=== PATIENT | male | born 1935 | race Caucasian/White ===

== ENCOUNTER 2017-03-30 20:05 | Emergency (ER) | payer MEDICARE ==
[~2017-03-30 20:05] MED LIST: ISOVUE-370 76%-LOCM 1 ML ONE
[2017-03-30 20:59] LABS: #Eosinphils 0.2 thou/uL (0.0-0.7); #Lymphocytes 1.1 thou/uL (1.20-3.40); #Monocytes 0.4 thou/uL (0.11-0.59); #Neutrophils 15.8 thou/uL (1.40-6.50); %Basophils 0.1 % (0.0-1.0); %Eosinophils 1.3 % (0.0-10.0); %Lymphocytes 6.3 % (21.0-51.0); %Monocytes 2.5 % (0.0-10.0); Hematocrit 58.6 % (42.0-52.0); Mean Platelet Volume 8.1 fL (7.4-10.4); Red Blood Cell (RBC) Count 6.12 mill/uL (4.70-6.10); White Blood Cell (WBC) Count 17.6 thou/uL (4.8-10.8)
[2017-03-30 21:08] LABS: ALT (SGPT) 26 U/L (8-55); AST (SGOT) 22 U/L (5-34); Alkaline Phosphatase 73 U/L (40-150); Anion Gap 14 mmol/L (10-20); BUN (Urea Nitrogen) 15 mg/dL (8.4-25.7); Calc. Creatinine Clearance 0 mL/min (70-130); Calcium 9.4 mg/dL (7.8-10.44); Carbon Dioxide 28 mmol/L (23-31); Chloride 98 mmol/L (98-107); Estimated GFR-MDRD 85; Globulin 3.2 g/dL (2.4-3.5); Lipase 55 U/L (8-78); Protein, Total 7.4 g/dL (5.8-8.1)
[2017-03-30] MEDS ORDERED: Ondansetron HCl/PF 4 MG/2 ML Vial ONE (21:11)
[2017-03-30] MEDS ORDERED: Acetaminophen 500 MG TAB ONE (21:11)
[2017-03-30 21:12] LABS: Troponin I Less than 0.010 ng/mL (< 0.028)
[2017-03-30] MEDS ORDERED: Dicyclomine HCl 20 mg/2 ml Ampule ONE (21:12)
--- NOTE | 2017-03-30 22:03 | CT ---
CT ABDOMEN AND PELVIS WITH IV CONTRAST 03/30/17 HISTORY: Abdominal pain. FINDINGS: Comparison is made with exam of 11/27/15. There are emphysematous changes at the lung bases. A few tiny low density lesions in the liver are a gain seen. The spleen, pancreas, adrenal glands, and kidneys are normal. No calcified gallstones are seen. A small hiatal hernia is present. No free air, free fluid or lymphadenopathy is noted in the abdomen or pelvis. There is colonic diverticulosis without evidence of diverticulitis. There are va scular calcifications without evidence of aneurysmal dilatation of the abdominal aorta. There is a f at containing left inguinal hernia. There is a small bowel loop containing right inguinal hernia. A small amount of air is seen in the lateral aspect of the right gluteal muscle. Clinical correlation is recommended. The prostate is enlarged. There are vascular calcifications without evidence of aneu rysmal dilatation of the abdominal aorta. There are degenerative changes in the spine. IMPRESSION: 1. Small hiatal hernia. 2. Colonic diverticulosis. 3. Tiny liver cysts. 4. Prostatic enlargement. POS: [facility]
== END 2017-03-30 23:54 | disposition home or self-care (01) ==
LOC: ERS 20:05
DX: R11.2 Nausea with vomiting, unspecified (principal); I25.2 Old myocardial infarction; F17.210 Nicotine dependence, cigarettes, uncomplicated; Z79.82 Long term (current) use of aspirin; Z79.899 Other long term (current) drug therapy
CPT/HCPCS: 74177; 80053; 82553; 83690; 84484; 85025; 93005; 96361; 96372; 96374; J2405

== ENCOUNTER 2017-10-26 18:13 | Emergency (ER) | payer MEDICARE ==
--- NOTE | 2017-10-26 19:56 | RAD ---
CHEST ONE VIEW: 10/26/17 HISTORY: 82-year-old male with history of upper abdominal pain and neck pain, trauma. There is rotation to the left. Left transvenous pacemaker. No confluent pneumonia, overt edema or ple ural effusion. No pneumothorax. IMPRESSION: No significant acute intrathoracic disease. Atherosclerosis of the aorta with ectasia. Stable from pr ior study. POS: [facility]
[2017-10-26 20:16] LABS: ALT (SGPT) 22 U/L (8-55); AST (SGOT) 20 U/L (5-34); Albumin 4.3 g/dL (3.4-4.8); Alkaline Phosphatase 64 U/L (40-150); Anion Gap 13 mmol/L (10-20); BUN (Urea Nitrogen) 14 mg/dL (8.4-25.7); Bilirubin, Total 0.4 mg/dL (0.2-1.2); Calc. Creatinine Clearance 0 mL/min (70-130); Calcium 9.5 mg/dL (7.8-10.44); Carbon Dioxide 28 mmol/L (23-31); Chloride 101 mmol/L (98-107); Estimated GFR-MDRD Greater than 90; Globulin 2.6 g/dL (2.4-3.5); Glucose 96 mg/dL (83-110); Potassium 4.5 mmol/L (3.5-5.1); Protein, Total 6.9 g/dL (5.8-8.1); Sodium 137 mmol/L (136-145)
[2017-10-26 20:21] LABS: CKMB 1.9 ng/mL (0-6.6); Troponin I Less than 0.010 ng/mL (< 0.028)
[2017-10-26 20:43] LABS: Bilirubin Negative (Negative); Blood, Urine Negative (Negative); Clarity CLEAR (Clear); Glucose, Urine (Dipstick) Negative (Negative); Leukocyte Negative (Negative); Nitrite Negative (Negative); Protein, Urine (Dipstick) Negative (Neg-Trace); Specific Gravity, Urine 1.014 (1.002-1.036); Urobilinogen 0.2 mg/dL (0.2-1.0)
--- NOTE | 2017-10-26 20:48 | CT ---
BRAIN CT WITHOUT IV CONTRAST: 10/26/17 HISTORY: 82-year-old male with history of upper abdominal and neck pain after falling from a ladder, injury an d trauma. There is some mild atrophy and chronic white matter ischemic change. No mass, bleed or other acute pr ocess. Sinuses and mastoids are clear. IMPRESSION: No acute intracranial process. No mass or bleed. POS: [facility]
--- NOTE | 2017-10-26 20:49 | CT ---
CERVICAL SPINE CT SCAN WITHOUT IV CONTRAST: 10/26/17 HISTORY: 82-year-old male with history of neck pain following fall from a ladder, injury and trauma. No evidence for acute fracture or facet dislocation. Spondylosis particularly at C5-C6 and C6-C7 with some mild to moderate canal and lateral recess and foraminal stenosis, particularly at C6-C7. IMPRESSION: No acute fracture or facet dislocation. Spondylosis most marked at C6-C7. POS: [facility]
--- NOTE | 2017-10-26 21:24 | CT ---
ABDOMEN AND PELVIC CT SCAN WITH IV CONTRAST LUMBAR SPINE CT SCAN WITH IV CONTRAST LIMITED: 10/26/17 HISTORY: 82-year-old male with history of trauma, upper abdomen and neck pain, fall off ladder. ABDOMEN AND PELVIC CT SCAN WITH IV CONTRAST: The lung bases show some mild linear chronic changes in the left base. Small hiatal hernia. The liver , gallbladder, pancreas, spleen, and adrenal glands are unremarkable. No renal calculus or acute o bstruction. No evidence for free intraperitoneal fluid or evidence for retroperitoneal hematoma. There is a loop of small bowel in the upper right inguinal canal consistent with an inguinal herniati on but no evidence of proximal obstruction or incarceration. There is a fat containing left inguinal hernia. There is evidence for sigmoid colon diverticulosis without acute diverticulitis. The bladder is nearly empty. IMPRESSION: No significant acute posttraumatic process in the abdomen and pelvis. Right inguinal hernia containin g a loop of small bowel without evidence for proximal obstruction or incarceration. Small hiatal candy ia. Left inguinal fat containing hernia. LUMBAR SPINE CT SCAN WITH IV CONTRAST LIMITED: No fracture or dislocation. There is some generalized disc osteophytosis and facet arthrosis. Mild a nterolisthesis of L3 on L4 with some focal disc bulging and moderate central canal and lateral recess stenosis and bilateral foraminal stenosis. Bilateral foraminal stenosis at L4-L5 and L5-S1. IMPRESSION: No evidence for acute lumbar spine fracture or dislocation. Lumbar disc disease as above. POS: [facility]
[2017-10-26] MEDS ORDERED: Morphine 4 MG/ML VIAL ONE (22:47)
== END 2017-10-26 23:34 | disposition home or self-care (01) ==
LOC: ERS 18:13
DX: S30.0XXA Contusion of lower back and pelvis, initial encounter (principal); I25.2 Old myocardial infarction; I10 Essential (primary) hypertension; Z87.891 Personal history of nicotine dependence; Z79.82 Long term (current) use of aspirin; Z79.899 Other long term (current) drug therapy; W11.XXXA Fall on and from ladder, initial encounter
CPT/HCPCS: 36415; 70450; 71045; 72125; 74177; 80053; 81003; 82553; 84484; 93005; J2270

== ENCOUNTER 2019-03-23 10:51 | Outpatient (CLI) | payer MEDICARE | END 2019-03-23 10:52 | disposition home or self-care (01) | LOC: CTENTCT 10:51 | PROVIDERS: ATTEND Otolaryngology Plastic Surgery within the Head & Neck | DX: J32.9 Chronic sinusitis, unspecified (principal) | CPT/HCPCS: 70486 ==

== ENCOUNTER 2019-09-06 18:22 | Inpatient (IN) | payer MEDICARE ==
[~2019-09-06 18:22] MED LIST changes: -ISOVUE-370 76%-LOCM 1 ML ONE; +Iopamidol 370 76% 100 ML VIAL ONE
[2019-09-06 19:06] LABS: #Eosinphils 0.3 thou/uL (0.0-0.7); #Lymphocytes 2.1 thou/uL (1.20-3.40); #Neutrophils 4.7 thou/uL (1.40-6.50); %Eosinophils 4.1 % (0.0-10.0); %Lymphocytes 25.8 % (21.0-51.0); %Monocytes 12.1 % (0.0-10.0); Hemoglobin 17.3 g/dL (14.0-18.0); Mean Corpuscular Hemoglobin 31.7 pg (27.0-31.0); Mean Corpuscular Volume 93.3 fL (78.0-98.0); Mean Platelet Volume 7.9 fL (7.4-10.4); Platelet Count 244 thou/uL (130-400); RBC Distribution Width 11.7 % (11.5-14.5); Red Blood Cell (RBC) Count 5.47 mill/uL (4.70-6.10); White Blood Cell (WBC) Count 8.2 thou/uL (4.8-10.8)
[2019-09-06] MEDS ORDERED: Morphine 4 MG/ML VIAL ONE ×2 (19:23→22:14)
[2019-09-06] MEDS ORDERED: Ondansetron PF 4 MG/2 ML Vial ONE (19:23)
[2019-09-06 19:28] LABS: ALT (SGPT) 13 U/L (8-55); AST (SGOT) 13 U/L (5-34); Alkaline Phosphatase 63 U/L (40-110); Anion Gap 13 mmol/L (10-20); BUN (Urea Nitrogen) 10 mg/dL (8.4-25.7); Bilirubin, Total 0.5 mg/dL (0.2-1.2); Calc. Creatinine Clearance 0 mL/min (70-130); Calcium 9.2 mg/dL (7.8-10.44); Carbon Dioxide 27 mmol/L (23-31); Chloride 98 mmol/L (98-107); Estimated GFR-MDRD Greater than 90; Globulin 2.6 g/dL (2.4-3.5); Glucose 99 mg/dL (83-110); Lipase 137 U/L (8-78); Potassium 4.3 mmol/L (3.5-5.1); Protein, Total 6.6 g/dL (5.8-8.1); Sodium 134 mmol/L (136-145)
--- NOTE | 2019-09-06 19:42 | RAD ---
Portable frontal chest radiograph: 09/06/2019 COMPARISON: 11/05/2017 HISTORY: Abdominal pain FINDINGS: Increased linear interstitial density with pulmonary hyperinflation. Atherosclerotic calcif ication of the aortic arch. Stable dual lead transvenous pacing device. No focal consolidation or alveolar edema. IMPRESSION: Stable appearance of the chest-no acute findings.
--- NOTE | 2019-09-06 20:41 | ULT ---
[facility] 09[facility] COMPARISON:None available HISTORY:Right upper quadrant pain TECHNIQUE: Multiplanar grayscale sonographic imaging of theright upper quadrant FINDINGS:Imaged pancreas appears grossly unremarkable. The pancreatic duct is mildly prominent, measu ring approximately 2-3 mm. This appears similar when compared to a CT examination performed in 2016. No focal liver lesion or intrahepatic biliary dilatation. No gallbladder wall thickening or pericholecystic fluid. No gallstones are noted. The common bile duct measures 4 mm, within normal limits. The right kidney measures 10.7 cm in craniocaudal dimension and demonstrates no evidence for stone, h ydronephrosis, or mass lesion. The cafeteria table attendant reports a positive Carter's sign, etiology uncertain. IMPRESSION:No evidence for cholelithiasis, cholecystitis, or biliary dilatation. The cafeteria table attendant repo rts a positive Carter's sign, significance uncertain. Clinical correlation required.
[2019-09-06 20:50] LABS: Bilirubin Negative (Negative); Blood, Urine Negative (Negative); Clarity Clear (Clear); Glucose, Urine (Dipstick) Negative (Negative); Leukocyte Negative (Negative); Nitrite Negative (Negative); Protein, Urine (Dipstick) Negative (Neg-Trace); Urobilinogen 0.2 mg/dL (Less than 2)
--- NOTE | 2019-09-06 21:08 | CT ---
CT of abdomen and pelvis: 09/06/2019 COMPARISON: 03/30/2017 HISTORY: Abdominal pain TECHNIQUE: Axial CT imaging at 5 mm intervals from lung bases through pubic symphysis with IV contras t. Coronal and sagittal reformatted imaging obtained. FINDINGS: There is mild increased linear interstitial density noted within both lung bases, stable. I ncompletely imaged transvenous pacing leads present. No free intraperitoneal air. The hepatic parenchyma demonstrates no discrete focal lesion. Gallbladder grossly unremarkable. Splee n, pancreas, adrenal glands, and kidneys demonstrate no acute findings. There is minimal stable prominence of the pancreatic duct. There is stable prominence and heterogeneity of the prostate gland. There is extensive diverticulosis of the descending colon and sigmoid colon with no evidence for diverticulitis. There is no evidence for focal bowel inflammatory change or bowel obstruction. The appendix is not di scretely visualized but no right lower quadrant inflammatory change is appreciated. Bilateral inguinal hernias are present, right larger than left. There is fat within bilateral inguina l hernias. There is a single nonobstructed loop of small bowel within the right inguinal hernia. There is extensive atherosclerotic calcification of the abdominal aorta and its branches. This includ es atherosclerotic calcification at the origin of the superior mesenteric artery and celiac axis with associated significant stenosis. No abdominal or pelvic lymphadenopathy is noted. There is multilevel lower lumbar spine facet hypertrophic change. There are degenerative changes at t he lumbosacral junction as well. No worrisome lytic or blastic bone lesion. IMPRESSION: Numerous stable/incidental findings as described above. No evidence for bowel inflammator y change, bowel obstruction, or free intraperitoneal air. 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 No CT evidence of acute bowel ischemia is seen at this time.
--- NOTE | 2019-09-06 23:17 | CT ---
CT angiogram chest: 09/06/2019 COMPARISON: 10/10/2015 HISTORY: Six-month history of chronic back pain, evaluate for a pulmonary embolism TECHNIQUE: Axial CT imaging at 2.5 mm intervals from lung apices through upper abdomen with IV contra st using CT angiogram protocol. Coronal and sagittal 3-D reformatted imaging obtained. FINDINGS: Extensive coronary arterial calcification noted. Dual lead transvenous pacing device presen t. No axillary, mediastinal, or hilar lymphadenopathy. Emphysematous changes are noted bilaterally with an upper lobe predominance. No discrete/dominant pul monary parenchymal mass lesion or nodule is evident on the right. There is small volume debris within the right mainstem bronchus. There is mild diffuse bronchial wall thickening, which may reflect bronchitis. There is a nonspecific nodule within the left upper lobe on image 75 measuring 7 mm. Additional nodul e in this region measures 6 mm. Within the medial aspect of the left lower lobe on axial image 86 there is a nodule measuring 1.3 cm. These left-sided pulmonary nodules are new when compared to a CT performed on 10/10/2015. There is no pulmonary arterial filling defect seen to suggest the presence of acute pulmonary arteria l embolism. Review of the osseous structures demonstrates bilateral shoulder degenerative change. No worrisome ly tic or blastic bone lesion. IMPRESSION: No evidence for acute pulmonary arterial embolism. There are emphysematous changes presen t with bronchial wall thickening suggesting possible bronchitis. There is also debris within the right mainstem bronchus. Pulmonary nodules are noted within the left lung, including a nodule measuring up to 1.3 cm within th e medial aspect of the left lower lobe. Given size, a PET CT is advised for full assessment. Results were discussed with Dr. Pham at 11:13 PM 09/06/2019 CODE T Code CR
[2019-09-06] MEDS ORDERED: HYDROmorphone 0.5 MG/0.5 ML SYRINGE ONE (23:21)
[2019-09-07] MEDS ORDERED: Meperidine HCl/PF 25 MG/ML VIAL SLOW IVP PRN (01:59)
[2019-09-07] MEDS ORDERED: Sodium Chloride 0.9% 1,000 ML IV SCH (02:00)
[2019-09-07 03:22] VITALS: BMI 25.9
[2019-09-07] MEDS: Sodium Chloride 0.9% 1,000 ML IV SCH ×2 (04:02→21:39)
[2019-09-07] MEDS: Acetaminophen 325 MG TAB PO PRN ×3 (04:05→21:47)
--- NOTE | 2019-09-07 04:14 | HP ---
CHIEF COMPLAINT: Abdominal pain. HISTORY OF PRESENT ILLNESS: Mr. Phelan is an 84-year-old male with past medical history of coronary artery disease, myocardial infarction, stent placement, pacemaker, hypertension, hyperlipidemia, Crohn disease, among others, presents to the emergency room with abdominal pain. As per the patient, his abdominal pain has been there for around 6 months, got worse lately. The patient also reports nausea and frequent diarrhea. Denies vomiting. Denies fever or chills. Workup in the emergency room including imaging studies, CT of abdomen and pelvis, the patient was found to have significant stenosis suspected at the origin of the celiac axis and superior mesenteric artery which predisposes to bowel ischemia. ED physician discussed the case with the surgeon who was going to consult the patient. No CT evidence of acute bowel ischemia. Right upper quadrant ultrasound, there is no evidence of cholelithiasis or cholecystitis. CTA of the chest, no evidence of acute pulmonary embolism. There were incidental pulmonary nodules noted in the left lung including nodule 1.3 cm within the medial aspect of the left lower lobe. The patient's lipase is mildly elevated. The patient is being admitted to hospital for further management. PAST MEDICAL HISTORY: As mentioned above in the history of present illness. PAST SURGICAL HISTORY: 1. Pacemaker placement. 2. Stent placement. 3. 18 inches of intestine removed in his teens. 4. Skin cancers being removed. FAMILY HISTORY: Reviewed and noncontributory. HOME MEDICATIONS: Please see home medication reconciliation form for updated medications. SOCIAL HISTORY: The patient smokes cigarettes. Denies alcohol use. REVIEW OF SYSTEMS: Review of 14 systems negative except what is mentioned in the history of present illness. PHYSICAL EXAMINATION: GENERAL: The patient is awake, alert, in moderate distress. VITAL SIGNS: Blood pressure is 128/68, pulse is 60, respiratory rate is 16, temperature 97.6. HEAD AND NECK: Normocephalic and atraumatic. Neck is supple. No JVD. CHEST: Fair bilateral air entry. HEART: S1, S2. Regular. ABDOMEN: Distended with epigastric and right upper quadrant tenderness. Bowel sounds are hypoactive. NEUROLOGIC: Awake, alert, and oriented x3. PSYCHIATRIC: Normal mood. EXTREMITIES: No clubbing or cyanosis. IMAGING: Imaging studies as mentioned above in the history of present illness. LABORATORY DATA: Lipase is 137. Sodium is 134, BUN is 10, creatinine 0.7. WBC count is 8.2. Lactic acid is 1.1. ASSESSMENT: 1. Acute abdominal pain? Etiology, mildly elevated lipase. 2. Chronic mesenteric ischemia. 3. History of Crohn disease. 4. Coronary artery disease. 5. Pulmonary nodules. 6. Cardiac pacemaker/AICD. 7. Hypertension. 8. Hyperlipidemia. PLAN: 1. Admit. 2. Keep the patient n.p.o. 3. IV fluid hydration. 4. Pain management. 5. Surgery consult for evaluation and further management. 6. Reconcile home medications. 7. DVT prophylaxis, low-dose heparin. 8. Expected length of stay, midnights or more. Job ID: [id number]
[2019-09-07 05:25] LABS: Lactic Acid 1.2 mmol/L (0.5-2.2)
[2019-09-07 05:33] LABS: Troponin I 0.011 ng/mL (< 0.028)
[2019-09-07 05:37] LABS: ALT (SGPT) 13 U/L (8-55); AST (SGOT) 14 U/L (5-34); Albumin 3.9 g/dL (3.4-4.8); Alkaline Phosphatase 60 U/L (40-110); Anion Gap 12 mmol/L (10-20); BUN (Urea Nitrogen) 10 mg/dL (8.4-25.7); Bilirubin, Total 0.4 mg/dL (0.2-1.2); Calc. Creatinine Clearance 78 mL/min (70-130); Calcium 8.9 mg/dL (7.8-10.44); Carbon Dioxide 28 mmol/L (23-31); Chloride 100 mmol/L (98-107); Estimated GFR-MDRD 90; Globulin 2.5 g/dL (2.4-3.5); Glucose 115 mg/dL (83-110); Lipase 70 U/L (8-78); Potassium 4.8 mmol/L (3.5-5.1); Protein, Total 6.4 g/dL (5.8-8.1); Sodium 135 mmol/L (136-145)
[2019-09-07 06:01] LABS: Eosinophils 2 % (0-10); Hemoglobin 16.4 g/dL (14.0-18.0); Lymphocytes 21 % (21-51); MDiff Complete? YES; Mean Corpuscular HGB CONC 32.3 g/dL (32.0-36.0); Mean Corpuscular Hemoglobin 30.6 pg (27.0-31.0); Mean Corpuscular Volume 94.8 fL (78.0-98.0); Monocytes 4 % (0-10); Neutrophil 73 % (42-75); Platelet Count 239 thou/uL (130-400); RBC Distribution Width 11.9 % (11.5-14.5); Red Blood Cell (RBC) Count 5.38 mill/uL (4.70-6.10); White Blood Cell (WBC) Count 11.5 thou/uL (4.8-10.8)
[2019-09-07 07:25] LABS: Troponin I 0.027 ng/mL (< 0.028)
[2019-09-07] MEDS: Heparin 5,000 UNITS/ML VIAL SC SCH ×3 (09:45→21:44)
--- NOTE | 2019-09-07 11:43 | NM ---
HEPATOBILIARY SCAN: HISTORY:Abdominal pain. No gallstones and ultrasound of 09/06/2019 RADIOPHARMACEUTICAL: 5.1 mCi Technetium 99m Mebrofenin injected intravenously FINDINGS: There is normal tracer extraction by the liver with normal excretion into the biliary tracts and smal l bowel loops and normal filling of the gallbladder. The calculated gallbladder ejection fraction following an oral fatty meal measures 22%. IMPRESSION:Chronic acalculus cholecystitis/gallbladder dyskinesia
--- NOTE | 2019-09-07 12:30 | CON ---
DATE OF CONSULTATION: HISTORY OF PRESENT ILLNESS: This is an 84-year-old gentleman with a remote history of Crohn's with a small bowel resection when he was a young man. He reports about six months of abdominal discomfort, worse in the last two days. The discomfort is under the edge of the right costal margin and is difficult to describe, but is rather constant and unrelated to meals. He states that he has rather chronic problems with loose stools. He says frequently after he eats, he will have a loose stool, but he does not have postprandial pain. Has had no weight loss and has no avoidance of food. PAST MEDICAL HISTORY: Congestive heart failure related to an anterior ND in 2002, was treated by stenting. He ultimately had placement of an AICD. He has the above-noted history of Crohn disease, hypertension, dyslipidemia. PAST SURGICAL HISTORY: Includes the previous small-bowel resection, pacemaker placement, and skin cancer removals. SOCIAL HISTORY: The patient smokes less than a pack of cigarettes a day. He does not drink. HOME MEDICATIONS: Include 1. Ambien p.r.n. 2. Zoloft 50 mg daily. 3. Xanax 0.5 p.r.n. 4. Spironolactone 12.5 b.i.d. 5. Isosorbide. 6. Aspirin 325 a day. 7. Coreg 12.5 b.i.d. 8. Plavix 75 daily. ALLERGIES: HE REPORTS ALLERGIES TO PENICILLIN. PRIMARY CARE PHYSICIAN: Cesar Roberto MD. He has not seen a operations forester in many years. LABORATORY FINDINGS: White count of 8200 on admission with a hematocrit of 51, platelet count 244. Lipase was elevated at 137. PHYSICAL EXAMINATION: VITAL SIGNS: He is afebrile. Heart rate of 60s, blood pressure of 160. NECK: No carotid bruits. LUNGS: Clear to auscultation. CARDIAC: Distant heart sounds. No murmurs. ABDOMEN: Protuberant, positive bowel sounds. Mild tenderness to palpation in the right upper quadrant, but otherwise no tenderness. EXTREMITIES: He has palpable posterior tibial pulse in both feet with no peripheral edema. I have reviewed his CT scan, which showed patent celiac, SMA and inferior mesenteric vessels with stenosis in both the celiac and SMA. At this time, the patient does have a mesenteric vascular disease, but his symptoms seem unrelated to these findings. I would hesitate to recommend angiography and stenting of the mesenteric vessels. At the present time, I would pursue further evaluation of his abdominal pain. On examination, he also has a palpable inguinal hernia on the right and he has no skin changes on his abdominal wall. Job ID: [id number]
--- NOTE | 2019-09-07 15:29 | PDOC.HOSPP ---
- Subjective Encounter Date: 09/07/19 Encounter Time: 13:33 Subjective: pt up in bed still has pain to his right upper quadrant. - Objective Vital Signs & Weight: Vital Signs (12 hours) Temp Pulse Resp BP Pulse Ox 09/07/19 11:41 97.5 F L 60 22 H 155/58 H 95 09/07/19 07:29 97.5 F L 63 18 149/61 H 94 L 09/07/19 04:00 60 134/62 Weight Weight 175 lb 9.6 oz I&O: 09/06/19 09/07/19 09/08/19 06:59 06:59 06:59 Intake Total 416 Balance 416 Result Diagrams: 09/07/19 04:44 09/07/19 04:44 Hospitalist ROS - Review of Systems Cardiovascular: denies: chest pain, palpitations, orthopnea, paroxysmal noc. dyspnea, edema, light headedness, other Gastrointestinal: reports: abdominal pain Genitourinary: denies: dysuria, frequency, incontinence, hematuria, retention, other Musculoskeletal: denies: neck pain, shoulder pain, arm pain, back pain, hand pain, leg pain, foot pain, other - Medication Medications: Active Medications Generic Name Dose Route Start Last Admin Trade Name Freq PRN Reason Stop Dose Admin Acetaminophen 650 mg 09/07/19 03:53 09/07/19 12:37 Tylenol PO 650 mg Q4H PRN Administration Headache/Fever or Pain Heparin Sodium (Porcine) 5,000 units 09/07/19 09:00 09/07/19 09:45 Heparin SC Not Given TID MARIAA Sodium Chloride 1,000 mls @ 75 mls/hr 09/07/19 02:58 09/07/19 04:02 Normal Saline 0.9% IV 1,000 mls .[id number] MARIAA Administration Levofloxacin 500 mg/ Device 100 mls @ 100 mls/hr 09/07/19 14:00 09/07/19 15: 23 IVPB 100 mls 1400 MARIAA Administration Meperidine HCl 25 mg 09/07/19 01:59 09/07/19 11:38 Demerol SLOW IVP 25 mg Q3H PRN Administration Severe Pain (7-10) - Exam Neck: negative: supple, symmetric, no JVD, no thyromegaly, no lymphadenopathy, no carotid bruit, JVD Heart: negative: RRR, no murmur, no gallops, no rubs, normal peripheral pulses, irregular, diminshed peripheral pulses, murmur present, II/IV, III/IV Gastrointestinal: soft, normal bowel sounds Gastrointestinal - other findings: pain on palpation Hosp A/P (1) Right upper quadrant abdominal pain Code(s): R10.11 - RIGHT UPPER QUADRANT PAIN Status: Acute (2) CAD (coronary artery disease) Code(s): I25.10 - ATHSCL HEART DISEASE OF [place] CORONARY ARTERY W/O ANG PCTRS Status: Acute - Plan will keep pt npo will consult surgery. will need cardio clearance. will start him on abx for now. family and pt updated.
[2019-09-07] MEDS: metroNIDAZOLE 500 MG in Premix Bag 1 BAG IVPB SCH ×2 (16:56→21:39)
[2019-09-07] MEDS: Morphine 4 MG/ML VIAL SLOW IVP PRN ×2 (17:38→21:47)
--- NOTE | 2019-09-07 17:46 | CON ---
DATE OF CONSULTATION: 09/07/2019 REQUESTING PHYSICIAN: Cassidy Brooke MD HISTORY OF PRESENT ILLNESS: Mr. Phelan is an 84-year-old man, who presented to the Emergency Department complaining of recurrent postprandial right upper quadrant abdominal pain over the last six months and has become progressively worse in both intensity and frequency over the last four days. The pain is now associated with multiple episodes of loose bowel movements shortly after meals and abdominal bloating and frequent flatulence. The patient denies any fevers or chills. He describes the pain as a pressure-type in the right subcostal region and it is band line radiating to his back. He endorses frequent recurrent nausea postprandial, but no emesis. He denies any hematochezia or melena. He denies any fatigue or early satiety. He denies any unexplained weight loss. PAST MEDICAL HISTORY: Significant for coronary artery disease of which the patient is status post anterior myocardial infarction in 2002. Other pertinent past medical history includes chronic congestive heart failure, essential hypertension, Crohn disease, and chronic depression. PAST SURGICAL HISTORY: Pertinent for coronary angiography with stenting in 2002, laparotomy with segmental small bowel resection in his teens for some regional enteritis, which he was told was Crohn's, although he takes no treatment for Crohn disease at this time. All other pertinent surgical history includes pacemaker implantation, excision of skin cancers in the right forearm and scalp as well as colonoscopy, he thinks about 10 years ago. SOCIAL HISTORY: He used to smoke one pack of cigarettes per day and did so for over 50 years. He quit smoking for approximately 12 years and has been smoking again now for over the last one year. He denies any ethanol or illicit drug abuse. FAMILY HISTORY: Noncontributory for this patient's age. PREHOSPITAL MEDICATIONS: Includes: 1. Alprazolam 0.5 mg p.o. daily. 2. Carvedilol 12.5 mg p.o. b.i.d. 3. Clopidogrel 75 mg p.o. daily. 4. Sertraline 50 mg p.o. daily. 5. Spironolactone 12.5 mg p.o. b.i.d. 6. Ambien 5 mg p.o. at bedtime. 7. Aspirin 325 mg p.o. daily. 8. Isosorbide mononitrate 7.5 mg p.o. daily. ALLERGIES: TO PENICILLIN. REVIEW OF SYSTEMS: Ten-point review of systems essentially unremarkable except as stated in past medical history and chief complaint. PHYSICAL EXAMINATION: GENERAL: This reveals an 84-year-old pleasant, normally developed man, who is otherwise coherent and interactive and appears stated age. The patient is alert and oriented x3, appears to be in no acute distress at time of my evaluation. VITAL SIGNS: Currently include blood pressure 155/58, pulse is 60, respiratory rate is 22, temperature 97.5 degrees Fahrenheit, and oxygen saturation 95% on room air. HEENT: Reveals normocephalic and atraumatic. Pupils are equal, round, and reactive to light and accommodation. HEART: Reveals regular rate and rhythm. No murmurs or gallops auscultated. LUNGS: Clear to auscultation bilaterally. Breathing, regular and unlabored. ABDOMEN: Soft and moderately distended. He has right upper quadrant tenderness to palpation. Liver and spleen nonpalpable below costal margins. NEUROLOGIC: Reveals no focal deficits present. LABORATORY FINDINGS: Today include a CBC with 11,500 white blood cells up from 8200 yesterday. Hemoglobin and hematocrit are 16.4 and 51.0 respectively. Platelet count is 239,000. Metabolic profile; sodium 135, potassium 4.8, chloride is 100, bicarb is 28, BUN is 10, creatinine 0.82, glucose is 115, and AST and ALT are 14 and 13 respectively. Total bilirubin is 0.4 and normal. Serum lipase is also normal at 70. Troponin I has been 0.10, 0.011 and 0.027 on serial examination. I have reviewed all radiographic studies including an abdominal ultrasound obtained yesterday, which is negative for gallstones, pericholecystic fluid or gallbladder wall thickening. The common bile duct is normal in diameter for this patient's age at 4 mm. I have also reviewed the CT scan of the abdomen and pelvis, which is unremarkable for any acute intraabdominal pathology. Of note; however, is bilateral nonobstructive inguinal hernias. Additionally significant calcific stenosis of the celiac and superior mesenteric arteries are noted. Chest CT angiography today is negative for pulmonary embolism. HIDA scan was obtained this morning, which is notable for a normal tracer extraction by the liver and normal excretion into the biliary tracts and small bowel consistent with absence of biliary obstruction. Of significance; however, his gallbladder ejection fraction, which is measured at 22%. IMPRESSION: Right upper quadrant abdominal pain likely secondary to chronic acalculous cholecystitis with biliary dyskinesia. RECOMMENDATION: Laparoscopic cholecystectomy once cardiac clearance has been obtained through the Primary Service. Above findings and recommendations have been discussed with the patient and his family at bedside. I have informed the patient of the risks and benefits of the proposed surgery to include, but not limited to bleeding, infection, injury to bile duct or surrounding structures. The patient indicates understanding information I have provided him. I did offer him an alternative option of bland diet and tobacco cessation to see if this would resolve the problem. The patient has declined the second option and has elected to proceed with laparoscopic cholecystectomy. I have answered all his questions. Thank you again, Dr. Brooke, for allowing me the opportunity to participate in the care of this patient. Job ID: [id number]
[2019-09-07] MEDS ORDERED: Carvedilol 6.25 MG TAB PO SCH (19:45)
--- NOTE | 2019-09-08 00:57 | CON ---
DATE OF CONSULTATION: HISTORY: Rodriguez Phelan is an 84-year-old white male, long-time patient of Dr. Cobos. He presented in 2002 with a large anterior myocardial infarction, underwent stent placement in the proximal LAD. He developed heart failure after that and ultimately had an ICD placed. His last cardiac catheterization was in July 2008. The proximal LAD stent was patent, there is mild plaque in the mid LAD and total occlusion of the first obtuse marginal. His ejection fraction at that time was 30% to 35% with anterior and apical akinesis. He is continued to be followed routinely in the office. In March 2017, he underwent cardiac PET scan which revealed no evidence of ischemia; however, there was a large anterolateral and apical scar consistent with his previous infarction. There was again no evidence of ischemia. His last echocardiogram was in May 2019, which revealed ejection fraction of 25% to 30% with [id number] aortic regurgitation, [id number] mitral regurgitation, mild tricuspid regurgitation, and trivial pulmonic regurgitation. The last appointment was also in May 2019 and he was asymptomatic. Mr. Phelan is now admitted with right upper quadrant abdominal pain. Abdominal ultrasound did not reveal any cholelithiasis; however, HIDA scan was remarkably abnormal and consideration is given to laparoscopic cholecystectomy. Cardiology preoperative evaluation is requested. He denies any chest discomfort. He rarely has shortness of breath. He denies any peripheral edema. PAST MEDICAL HISTORY: Coronary artery disease, large anterior myocardial infarction, severe ischemic cardiomyopathy with ejection fraction of 25% to 30%, hypertension, hyperlipidemia, GERD, Crohn disease, depression, and anxiety. OPERATIONS: Small bowel resection many years ago as a child of Crohn disease. Multiple ICD placements. MEDICATIONS: 1. Alprazolam 0.5 mg p.r.n. 2. Aspirin 325 daily. 3. Clopidogrel 75 daily. 4. Carvedilol 12.5 b.i.d. 5. Isosorbide mononitrate 7.5 mg daily. 6. Zoloft 50 daily. 7. Spironolactone 12.5 b.i.d. 8. Ambien 5 mg at bedtime p.r.n. ALLERGIES: PENICILLIN. SOCIAL HISTORY: He stopped smoking for 15 years but within the last year he started smoking a pack per day. He does not drink alcohol. REVIEW OF SYSTEMS: Unremarkable except as noted above. PHYSICAL EXAMINATION: VITAL SIGNS: Blood pressure 148/67, pulse of 60. HEENT: PERRL. NECK: Supple. CHEST: Reveals late expiratory wheezing. CARDIOVASCULAR: S1 and S2 were normal without any S3, S4, or murmurs. ABDOMEN: Normal bowel sounds with right upper quadrant tenderness. EXTREMITIES: Revealed no clubbing, cyanosis, or edema. NEUROLOGICAL: Grossly intact. SKIN: Warm and dry. LABORATORY DATA: I do not see an EKG on the chart. On the telemetry, he is atrially paced, ventricularly sensed. White count 11,500; hemoglobin 16.4; hematocrit 51.0; platelets 239,000. D-dimer 1.81. Sodium 135, potassium 4.8, chloride 100, carbon dioxide 28, BUN 10, and creatinine 0.82. Cardiac enzymes are normal x3. Liver enzymes are normal. CTA of the chest revealed no evidence of pulmonary embolism. There are emphysematous changes. HIDA scan revealed chronic acalculous cholecystitis. IMPRESSION: 1. Chronic acalculous cholecystitis. 2. Ischemic cardiomyopathy with last ejection fraction of 25% to 30%. 3. Status post anterior myocardial infarction with stent placed in the left anterior descending. 4. Status post dual-chamber implantable cardioverter-defibrillator. 5. Hypertension. 6. Hypercholesterolemia. 7. The patient has resumed smoking and has expiratory wheezing on exam at the present time. RECOMMENDATIONS: EKG will be requested. [facility] will be performed to evaluate his ICD. He just had an echocardiogram 3 months ago. Lexiscan Cardiolite test will be performed. His Plavix has been discontinued. Carvedilol will be resumed. Also with wheezing, he will be started on neb treatments. Job ID: [id number]
[2019-09-08] MEDS: Sodium Chloride 0.9% 1,000 ML IV SCH (04:39)
[2019-09-08] MEDS: metroNIDAZOLE 500 MG in Premix Bag 1 BAG IVPB SCH ×3 (04:41→22:10)
[2019-09-08] MEDS: Morphine 4 MG/ML VIAL SLOW IVP PRN (05:36)
[2019-09-08] MEDS ORDERED: Promethazine HCl 25 MG in Sodium Chloride 0.9% 50 ML IVPB PRN (05:53)
[2019-09-08] MEDS: Heparin 5,000 UNITS/ML VIAL SC SCH ×3 (07:39→22:08)
--- NOTE | 2019-09-08 07:54 | PDOC.CPN ---
- Subjective Date: 09/08/19 Time: 08:06 Interval history: The pt seen and examined. No overnight cardiac events. No cardiac complaints. However, he complains of severe pain to RUQ ABD. - Objective Allergies/Adverse Reactions: Allergies Allergy/AdvReac Type Severity Reaction Status Date / Time Penicillins Allergy Verified 04/27/14 05:08 Visit Medications: Current Medications Acetaminophen (Tylenol) 650 mg PO Q4H PRN PRN Reason: Headache/Fever or Pain Last Admin: 09/07/19 21:47 Dose: 650 mg Albuterol/Ipratropium (Duoneb) 3 ml NEB [id number] [facility] Last Admin: 09/07/19 23:44 Dose: 3 ml Aspirin (Aspirin) 325 mg PO DAILY [facility] Carvedilol (Coreg) 12.5 mg PO BID-WM [facility] Heparin Sodium (Porcine) (Heparin) 5,000 units SC TID [facility] Last Admin: 09/08/19 07:39 Dose: Not Given Levofloxacin 500 mg/ Device 100 mls @ 100 mls/hr IVPB 1400 [facility] Last Admin: 09/07/19 15:23 Dose: 100 mls Metronidazole 500 mg/ Device 100 mls @ 100 mls/hr IVPB Q8HR [facility] Last Admin: 09/08/19 04:41 Dose: 100 mls Promethazine HCl 25 mg/ Sodium (Chloride) 51 mls @ 204 mls/hr IVPB Q8H PRN PRN Reason: Nausea Last Admin: 09/08/19 07:34 Dose: 51 mls Meperidine HCl (Demerol) 25 mg SLOW IVP Q3H PRN PRN Reason: Severe Pain (7-10) Last Admin: 09/07/19 11:38 Dose: 25 mg Morphine Sulfate (Morphine) 4 mg SLOW IVP Q4H PRN PRN Reason: Mild-Moderate Pain (1-5) Last Admin: 09/08/19 05:36 Dose: 4 mg Isosorbide (Mononitrate 7.5 Mg) 1 each PO DAILY [facility] Vital Signs & Weight: Vital Signs Temp Pulse Resp BP BP BP Pulse Ox 09/08/19 03:59 97.4 F L 60 20 131/58 L 94 L 09/07/19 23:44 61 18 96 09/07/19 23:22 98.7 F 61 14 136/66 93 L 09/07/19 21:38 151/74 H 09/07/19 19:51 98.5 F 62 25 H 151/74 H 93 L Weight 175 lb 9.6 oz - Physical Exam General: alert & oriented x3 HEENT: mucus membranes moist Neck: supple neck Cardiac: regular rate and rhythm, S1/S2 Lungs: clear to auscultation Neuro: cranial nerve 2-12 intact Abdomen: distended Extremities: no cyanosis Skin: clear Musculoskeletal: normal range of motion - Labs Result Diagrams: 09/07/19 04:44 09/07/19 04:44 Troponin/CKMB Troponin I 0.027 ng/mL (< 0.028) 09/07/19 06:59 - Telemetry Sinus rhythms and dysrhythmias: other (SR with Apaced) - Assessment/Plan Assessment/Plan: 1. Pre-op cardiac clearance - Stress test in 2016 (at Dr Cobos' office) showed no reversible ischemia; the pt is cleared for Cholecystectomy today 2. RUQ ABD pain 2/2 cholecystitis - Plan for Cholecystectomy today 3. CAD with hx of stents in 2002 - Plavix and 4. 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 Ischemic CMY with hx of AICD - AICD interrogation showed no arrhythmia since 11/2018 6. HTN - stable 7. HLD 8. 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 Current smoker - strongly recommend smoking cessation MAR Reviewed * Clear for the surgery Pt. seen and eval. by me. I agree with the A/P b y the NURSING PROGRAM DIRECTOR. Chest clear. RRR. No edema. Okay for surgery.
[2019-09-08] MEDS ORDERED: Fentanyl 100 MCG/2 ML VIAL ONE (08:05)
[2019-09-08] MEDS ORDERED: Aspirin 325 MG TAB PO SCH (09:00)
[2019-09-08] MEDS ORDERED: ISOSORBIDE MONONITRATE PO SCH (09:00)
[2019-09-08] MEDS: Carvedilol 6.25 MG TAB PO SCH ×2 (09:19→15:49)
[2019-09-08] MEDS ORDERED: Lidocaine 1% w/Epinephrine 1:100K 20 ML VIAL ONE (09:27)
[2019-09-08] MEDS ORDERED: Bupivacaine PF 0.5% 30 ML VIAL ONE (09:27)
[2019-09-08] MEDS ORDERED: Bupivacaine 0.25% HCL 30 ML VIAL ONE (09:36)
[2019-09-08] MEDS ORDERED: Rocuronium Bromide 10 MG/ML (10ML VIAL) ONE (09:46)
[2019-09-08] MEDS ORDERED: PHENYLEPHRINE-NS 100 MCG/ML 10 ML SYRINGE ONE (09:46)
[2019-09-08] MEDS ORDERED: PROPOFOL 200 MG/20 ML VIAL ONE (09:46)
[2019-09-08] MEDS ORDERED: Lidocaine 1% PF 5 ML VIAL ONE (09:46)
[2019-09-08] MEDS ORDERED: diphenhydrAMINE 50 MG/ML VIAL ONE (09:46)
[2019-09-08] MEDS ORDERED: Dexamethasone 20 MG/5 ML VIAL ONE (09:46)
[2019-09-08] MEDS ORDERED: Labetalol HCl 100 MG/20 ML VIAL ONE (09:46)
[2019-09-08] MEDS ORDERED: Ondansetron PF 4 MG/2 ML Vial ONE (09:46)
[2019-09-08] MEDS ORDERED: traMADol HCl 50 MG TAB PO PRN (11:03)
[2019-09-08] MEDS ORDERED: Morphine 4 MG/ML VIAL SLOW IVP PRN (11:05)
--- NOTE | 2019-09-08 14:02 | OP ---
DATE OF PROCEDURE: 09/08/2019 PREOPERATIVE DIAGNOSIS: Acute on chronic acalculous cholecystitis. POSTOPERATIVE DIAGNOSIS: Acute on chronic acalculous cholecystitis. PROCEDURE PERFORMED: Laparoscopic cholecystectomy. ANESTHESIA: General endotracheal. ESTIMATED BLOOD LOSS: 5 mL. FLUIDS GIVEN: 900 mL of crystalloids. COUNTS: Sponge and instrument counts were verified as correct x2. COMPLICATIONS: None apparent at the time of operation. INDICATIONS FOR OPERATION: An 84-year-old man, presented with recurrent right upper quadrant postprandial abdominal pain of 6 months' duration, which has become progressively worse over the previous 4 days prior to admission. Clinical and radiographic examination were consistent with acute on chronic acalculous cholecystitis for which the patient was brought to the operating room for cholecystectomy. Findings are consistent with dilated gallbladder in the usual anatomic location completely encased by omental adhesions. DESCRIPTION OF PROCEDURE: Informed consent was obtained from the patient, he was brought to the operating room and placed in supine position. Following general anesthesia, abdomen was sterilely prepped and draped in usual fashion. The skin below the umbilicus was infiltrated with 0.25% Marcaine with epinephrine. A small curvilinear infraumbilical incision was made using 11 scalpel. Umbilical stalk grasped with Nicolasa and elevated. Veress needle was inserted through the incision and placed in the peritoneal cavity through which the abdomen was insufflated with 3 L of CO2 gas. Intraabdominal pressure was noted at 2 mmHg. Following abdominal insufflation, Veress needle was removed. A 5-mm trocar introduced using a Visiport under laparoscopy. Laparoscopy confirmed proper placement of the port. No injuries to underlying structures. Additional laparoscopy reveals dilated gallbladder in usual anatomic location encased by omental adhesions. Under the laparoscopy, a 12 mm epigastric and two 5 mm right lateral subcostal ports were placed after the overlying skin infiltrated with 0.25% Marcaine with epinephrine and appropriate incision was made. The patient was placed in a reverse Trendelenburg position, rotated to his left. I introduced a [place] dissector with cautery using this to take down omental adhesions to expose the fundus of the gallbladder. Prestige grasper was introduced through the right lateral subcostal port grasping the fundus of the gallbladder, which was elevated cephalad. Omental adhesions were dissected off the remainder of the gallbladder with good hemostasis. A second Prestige grasper introduced through the right medial subcostal port grasping the Ian's pouch, which was retracted laterally. An anterior coursing cystic artery was dissected free from surrounding structures at the triangle of Calot. The artery was divided between clips applying 2 clips proximally and 1 clip at the junction of the cystic artery and gallbladder. Cystic duct was then dissected free from surrounding structures and divided between clips in a similar fashion. The gallbladder was removed from the liver bed using cautery with good hemostasis. It was delivered of the abdominal cavity using an Endo Catch. Operative site was inspected for good hemostasis. All clips remained in place. No bile stains present. Finding, no other pathology. Laparoscopy was terminated. Fascia of the epigastric port was closed using 0 Vicryl suture and Endo Close device under laparoscopy. The abdomen was desufflated. All ports and instruments removed and accounted for. Skin incisions were closed using 4-0 Monocryl suture in subcuticular fashion. Dermabond was applied over incisional closure. The patient tolerated the operation without any apparent complication and was returned to recovery room in satisfactory condition. Job ID: [id number]
[2019-09-08] MEDS: traMADol HCl 50 MG TAB PO SCH ×3 (14:06→22:09)
[2019-09-08] MEDS: Acetaminophen 325 MG TAB PO SCH ×3 (14:06→22:10)
--- NOTE | 2019-09-08 22:54 | EKG ---
Test Reason : STAT Blood Pressure : / mmHG Vent. Rate : 060 BPM Atrial Rate : 060 BPM P-R Int : 114 ms QRS Dur : 094 ms QT Int : 434 ms P-R-T Axes : -20 010 095 degrees QTc Int : 434 ms Electronic atrial pacemaker Low voltage QRS Anteroseptal infarct (cited on or before 21-MAY-2004) Abnormal ECG When compared with ECG of 26-OCT-2017 19:49, Inverted T waves have replaced nonspecific T wave abnormality in Anterior leads Confirmed by PAULINA KEMP, DR. Ojeda ([id number]) on 09/08/2019 10:53:47 PM Referred By: Confirmed By:DR. Lynette GALLARDO MD
[2019-09-09 05:10] LABS: #Lymphocytes 1.8 thou/uL (1.20-3.40); #Monocytes 1.1 thou/uL (0.11-0.59); #Neutrophils 10.5 thou/uL (1.40-6.50); %Basophils 0.1 % (0.0-1.0); %Eosinophils 0.1 % (0.0-10.0); %Lymphocytes 13.1 % (21.0-51.0); %Monocytes 8.3 % (0.0-10.0); %Neutrophils 78.3 % (42.0-75.0); Hemoglobin 14.7 g/dL (14.0-18.0); Mean Corpuscular HGB CONC 33.6 g/dL (32.0-36.0); Mean Corpuscular Hemoglobin 31.2 pg (27.0-31.0); Platelet Count 192 thou/uL (130-400); RBC Distribution Width 11.7 % (11.5-14.5); Red Blood Cell (RBC) Count 4.71 mill/uL (4.70-6.10); White Blood Cell (WBC) Count 13.5 thou/uL (4.8-10.8)
[2019-09-09 05:39] LABS: ALT (SGPT) 15 U/L (8-55); AST (SGOT) 21 U/L (5-34); Albumin 3.4 g/dL (3.4-4.8); Alkaline Phosphatase 49 U/L (40-110); Anion Gap 12 mmol/L (10-20); BUN (Urea Nitrogen) 12 mg/dL (8.4-25.7); Bilirubin, Direct 0.2 mg/dL (0.1-0.3); Bilirubin, Total 0.4 mg/dL (0.2-1.2); Calc. Creatinine Clearance 81 mL/min (70-130); Calcium 8.8 mg/dL (7.8-10.44); Carbon Dioxide 27 mmol/L (23-31); Chloride 99 mmol/L (98-107); Estimated GFR-MDRD Greater than 90; Glucose 126 mg/dL (83-110); Magnesium 1.7 mg/dL (1.6-2.6); Phosphorus 2.4 mg/dL (2.3-4.7); Potassium 3.7 mmol/L (3.5-5.1); Protein, Total 5.5 g/dL (5.8-8.1); Sodium 134 mmol/L (136-145)
[2019-09-09] MEDS: metroNIDAZOLE 500 MG in Premix Bag 1 BAG IVPB SCH ×2 (05:56→14:31)
[2019-09-09] MEDS: Acetaminophen 325 MG TAB PO SCH ×3 (05:56→11:32)
[2019-09-09] MEDS: traMADol HCl 50 MG TAB PO SCH ×2 (05:56→11:32)
--- NOTE | 2019-09-09 07:53 | PDOC.HOSPP ---
- Subjective Encounter Date: 09/08/19 Encounter Time: 12:30 Subjective: pt up in bed no complains. He is tolerating his clear liquid diet well. - Objective Vital Signs & Weight: Vital Signs (12 hours) Temp Pulse Resp BP Pulse Ox 09/09/19 07:08 61 14 96 09/09/19 04:00 97.5 F L 61 16 137/65 96 09/09/19 00:12 70 16 93 L 09/08/19 23:00 97.5 F L 69 14 141/62 H 94 L Weight Weight 175 lb 9.6 oz I&O: 09/08/19 09/09/19 09/10/19 06:59 06:59 06:59 Intake Total 2980 1480 Balance 2980 1480 Result Diagrams: 09/09/19 04:44 09/09/19 04:44 Hospitalist ROS - Review of Systems Cardiovascular: denies: chest pain, palpitations, orthopnea, paroxysmal noc. dyspnea, edema, light headedness, other Gastrointestinal: denies: nausea, vomiting, abdominal pain, diarrhea, constipation, melena, hematochezia, other Genitourinary: denies: dysuria, frequency, incontinence, hematuria, retention, other - Medication Medications: Active Medications Generic Name Dose Route Start Last Admin Trade Name Freq PRN Reason Stop Dose Admin Acetaminophen 650 mg 09/08/19 11:15 09/09/19 05:59 Tylenol PO Not Given Q6H MARIAA Albuterol/Ipratropium 3 ml 09/08/19 01:00 09/09/19 07:08 Duoneb NEB 3 ml [id number] MARIAA Administration Carvedilol 12.5 mg 09/08/19 08:00 09/08/19 15:49 Coreg PO 12.5 mg BID-WM MARIAA Administration Heparin Sodium (Porcine) 5,000 units 09/07/19 09:00 09/08/19 22:08 Heparin SC Not Given TID MARIAA Levofloxacin 500 mg/ Device 100 mls @ 100 mls/hr 09/07/19 14:00 09/08/19 14: 15 IVPB 100 mls 1400 [facility] Administration Metronidazole 500 mg/ Device 100 mls @ 100 mls/hr 09/07/19 14:00 09/09/19 05: 56 IVPB 100 mls Q8HR MARIAA Administration Promethazine HCl 25 mg/ Sodium 51 mls @ 204 mls/hr 09/08/19 05:53 09/08/19 07 :34 Chloride IVPB 51 mls Q8H PRN Administration Nausea Tramadol HCl 50 mg 09/08/19 11:15 09/09/19 05:56 Ultram PO Not Given Q6H MARIAA - Exam Heart: negative: RRR, no murmur, no gallops, no rubs, normal peripheral pulses, irregular, diminshed peripheral pulses, murmur present, II/IV, III/IV Respiratory: negative: CTAB, no wheezes, no rales, no ronchi, normal chest expansion, no tachypnea, normal percussion, rales, rhonchi, tachypneic, wheezes Gastrointestinal: soft, non-tender Gastrointestinal - other findings: laproscopic incison intact. Extremities: negative: no cyanosis, no clubbing, no edema, 1+ LE edema, 2+ LE edema, clubbing Hosp A/P (1) Right upper quadrant abdominal pain Code(s): R10.11 - RIGHT UPPER QUADRANT PAIN Status: Acute (2) CAD (coronary artery disease) Code(s): I25.10 - ATHSCL HEART DISEASE OF [place] CORONARY ARTERY W/O ANG PCTRS Status: Acute - Plan will keep pt npo will consult surgery. will need cardio clearance. will start him on abx for now. family and pt updated. 09/08 s/p cholecystectomy, he is doing well. possible discharge in am. will check labs.
[2019-09-09 08:06] VITALS: TEMP 97.4
[2019-09-09] MEDS: Heparin 5,000 UNITS/ML VIAL SC SCH (08:46)
[2019-09-09] MEDS: Carvedilol 6.25 MG TAB PO SCH (08:46)
[2019-09-09] MEDS ORDERED: Aspirin 81 mg Enteric Coated Tablet PO SCH (09:00)
--- NOTE | 2019-09-09 11:27 | PDOC.CPN ---
- Subjective Date: 09/09/19 Time: 08:30 Interval history: The pt seen and examined. No overnight events. No cardiac complaints. - Objective Allergies/Adverse Reactions: Allergies Allergy/AdvReac Type Severity Reaction Status Date / Time Penicillins Allergy Verified 04/27/14 05:08 Visit Medications: Current Medications Acetaminophen (Tylenol) 650 mg PO Q6H [facility] Last Admin: 09/09/19 05:59 Dose: Not Given Albuterol/Ipratropium (Duoneb) 3 ml NEB [id number] [facility] Last Admin: 09/09/19 07:08 Dose: 3 ml Aspirin (Ecotrin) 81 mg PO DAILY [facility] Last Admin: 09/09/19 08:46 Dose: 81 mg Carvedilol (Coreg) 12.5 mg PO BID-WM [facility] Last Admin: 09/09/19 08:46 Dose: 12.5 mg Heparin Sodium (Porcine) (Heparin) 5,000 units SC TID [facility] Last Admin: 09/09/19 08:46 Dose: 5,000 units Levofloxacin 500 mg/ Device 100 mls @ 100 mls/hr IVPB 1400 [facility] Last Admin: 09/08/19 14:15 Dose: 100 mls Metronidazole 500 mg/ Device 100 mls @ 100 mls/hr IVPB Q8HR [facility] Last Admin: 09/09/19 05:56 Dose: 100 mls Promethazine HCl 25 mg/ Sodium (Chloride) 51 mls @ 204 mls/hr IVPB Q8H PRN PRN Reason: Nausea Last Admin: 09/08/19 07:34 Dose: 51 mls Morphine Sulfate (Morphine) 4 mg SLOW IVP Q4H PRN PRN Reason: Breakthrough Pain Isosorbide (Mononitrate 7.5 Mg) 1 each PO DAILY [facility] Tramadol HCl (Ultram) 50 mg PO Q6H [facility] Last Admin: 09/09/19 05:56 Dose: Not Given Tramadol HCl (Ultram) 50 mg PO Q6H PRN PRN Reason: Breakthrough Pain Vital Signs & Weight: Vital Signs Temp Pulse Resp BP BP Pulse Ox 09/09/19 08:46 151/74 H 09/09/19 07:48 97.4 F L 64 18 152/63 H 94 L 09/09/19 07:08 61 14 96 09/09/19 04:00 97.5 F L 61 16 137/65 96 03/18/20 00:12 70 16 93 L Weight 175 lb 9.6 oz - Physical Exam General: alert & oriented x3 HEENT: mucus membranes moist Neck: supple neck Cardiac: regular rate and rhythm, S1/S2 Lungs: clear to auscultation Neuro: cranial nerve 2-12 intact Extremities: no edema - Labs Result Diagrams: 09/09/19 04:44 09/09/19 04:44 Troponin/CKMB Troponin I 0.027 ng/mL (< 0.028) 09/07/19 06:59 - Telemetry Sinus rhythms and dysrhythmias: other (a paced) - Assessment/Plan Assessment/Plan: 1. RUQ ABD pain 2/2 cholecystitis with s/p Cholecystectomy on 09/08/2019 2. CAD with hx of stents in 2002 - Plavix and ASA will be resumed as Surgeon's recommendation 3. 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 Ischemic CMY with hx of AICD - AICD interrogation showed no arrhythmia since 11/2018 5. HTN - stable 6. HLD 7. 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 Current smoker - strongly recommend smoking cessation MAR Reviewed * The pt already has appt with Dr Cobos' office in 10/2019 Pt. seen and eval. by me. I agree with the A/P by the ELECTROPHONIC ENGINEER> Chest clear, RRR. No edema. Advised to stop smoking.
[2019-09-09 12:24] VITALS: BP 150/63
--- NOTE | 2019-09-09 17:56 | PRG ---
DATE OF SERVICE: 09/09/2019 SUBJECTIVE: Mr. Phelan is an 84-year-old man, who is postoperative day #1, status post laparoscopic cholecystectomy. This morning, he is awake and alert. He tolerated general diet. He is having normal bowel and urinary function. Pain is adequately controlled on oral analgesics. He has remained hemodynamically stable since surgery. OBJECTIVE: VITAL SIGNS: His vital signs have been stable and the patient is afebrile. ABDOMEN: Soft and nondistended. Incisions remain intact clean and dry. There is some bruising around the lower aspect of the umbilicus. No palpable hematoma present. Clearly, the patient has no peritoneal signs on examination. He is ambulating without any difficulty. LABORATORY FINDINGS: Today include CBC with 13,500 white blood cells, hemoglobin and hematocrit stable at 14.7 and 43.8 respectively. Platelet count is 192,000. Metabolic profile; sodium 134, potassium 3.7, chloride is 99, bicarb is 27, BUN 12, creatinine 0.79, glucose 126. Total bilirubin is 0.4 and stable. AST and ALT remain normal at 21 and 15 respectively. IMPRESSION: Postop day #1, status post laparoscopic cholecystectomy for acalculous cholecystitis. RECOMMENDATIONS: The patient may be discharged at the discretion of the primary service. He is to follow up with me in my clinic on September 23 at 10:30 a.m. He is to take Tylenol 650 mg p.o. q.6 hours p.r.n. pain and may alternate this with ibuprofen 400 mg p.o. q.8 hours p.r.n. pain. I offered to give him a prescription for some tramadol, which he declined and not having much pain. He may call me with any questions or problems including exacerbation of abdominal pain, fever in excess of 101 degrees Fahrenheit, or intolerance to oral intake. Information given to the patient in the presence of his adult son and [id number]. They all indicated understanding of information given. I have answered their questions. The patient has expressed deep gratitude for the care rendered to him during this hospitalization and surgery. Job ID: [id number]
--- NOTE | 2019-09-09 20:51 | DIS ---
DATE OF ADMISSION: 09/07/2019 DATE OF DISCHARGE: 09/09/2019 DISCHARGE DIAGNOSES: As of the followin. Right upper quadrant abdominal pain. 2. Coronary artery disease. HOSPITAL COURSE: The patient is a very pleasant 84-year-old man, who presents to the hospital with right upper quadrant abdominal pain. He underwent a HIDA scan, which indicated chronic acalculous cholecystitis and gallbladder dyskinesia. At this time, Surgery was consulted and the patient underwent a cholecystectomy. The patient tolerated the procedure really well. He did require cardiology clearance. The patient will be discharged home. He will follow up with his primary. He is going to be continuing the aspirin 81 mg daily. The Plavix he will continue after a week per surgeon's recommendations, carvedilol 12.5 twice a day, isosorbide 7.5 daily, spironolactone 12.5 twice a day, Xanax as needed, Zoloft 50 mg daily, and Ambien 5 mg q.h.s. p.r.n. PHYSICAL EXAMINATION: VITAL SIGNS: Temperature of 97.4, heart rate 60, respirations 18, O2 saturation 98% on room air, blood pressure 150/63. GENERAL: He is awake, alert, and oriented x3. Does not appear in distress. CV: S1 and S2 present. No murmurs, rubs, or gallops. ABDOMEN: Soft and nontender. Bowel sounds are present x2. He does have 3 laparoscopic incisions. Again, his LFTs are completely normal on the day of discharge. Job ID: [id number]
--- NOTE | 2019-09-11 11:02 | PQF ---
TD GIRALDO KARISHMA [id number] [address] [place] [address] [id number] CLINICAL DOCUMENTATION CLARIFICATION FORM: POST DISCHARGE Addendum to original discharge summary date: ____ Late entry note date: __ DATE:09/11/2019 ATTN: TRACY BROOKE Please exercise your independent, professional judgment in responding to the clarification form. Clinical indicators are provided on the bottom of this form for your review Please check appropriate box(s) to clarify if the following diagnosis has been ruled in or ruled out:Acute pancreatitis [ ] Ruled in diagnosis [ ] Continue to treat [ ] Resolved [ ] Ruled out diagnosis [ ] Cannot rule out diagnosis [ x] Other diagnosis ___not pancreatitis [ ] Unable to determine For continuity of documentation, please document condition throughout progress notes and discharge summary. Thank You. CLINICAL INDICATORS - SIGNS / SYMPTOMS / LABS Acute pancreatitis-Documented in ED on 09/06 by Vero Paiz DO Tender to the epigastric region to the right upper quadrant-Documented in ED on 09/06 by Vero Paiz DO Associated with nausea -Documented in ED on 09/06 by Vero Paiz DO Lipase is 137 -Documented in H&P on 09/06 by Cathy Juarez MD Mildly elevated lipase-Documented in H&P on 09/06 by Cathy Juarez MD He underwent a HIDA scan which indicated chronic acalculous cholecystitis and gallbladder dyskinesia -Documented in Discharge summary on 09/08 by Tracy Brooke MD [employer]ISK [employer]CTORS Lipase is 137 -Documented in H&P on 09/06 by Cathy Juarez MD Mildly elevated lipase-Documented in H&P on 09/06 by Cathy Juarez MD TREATMENTS IV fluid hydration -Documented in H&P on 09/06 by Cathy Juarez MD Laparoscopic cholecystectomy -Documented in OP note on 09/07 by Boby Serrano DO [employer] Laboratory Technician [employer] (This form is maintained as a part of the permanent medical record) 2014 [employer]. All Rights Reserved [email or web address]
== END 2019-09-09 15:03 | disposition home or self-care (01) | DRG 418 ==
LOC: ERS 18:22 → 2SW 09-07 00:44
PROVIDERS: ADMIT Internal Medicine; ATTEND Internal Medicine
PROC: 0FT44ZZ Resection of Gallbladder, Percutaneous Endoscopic Approach (ICD-10-PCS; principal; 2019-09-08)
DX: K80.12 Calculus of gallbladder with acute and chronic cholecystitis without obstruction (principal); K55.1 Chronic vascular disorders of intestine; I50.22 Chronic systolic (congestive) heart failure; K82.8 Other specified diseases of gallbladder; I25.10 Atherosclerotic heart disease of native coronary artery without angina pectoris; I25.2 Old myocardial infarction; Z95.5 Presence of coronary angioplasty implant and graft; F17.210 Nicotine dependence, cigarettes, uncomplicated; R91.1 Solitary pulmonary nodule; E78.5 Hyperlipidemia, unspecified; Z95.810 Presence of automatic (implantable) cardiac defibrillator; Z88.0 Allergy status to penicillin; K40.90 Unilateral inguinal hernia, without obstruction or gangrene, not specified as recurrent; F32.9 Major depressive disorder, single episode, unspecified; F41.9 Anxiety disorder, unspecified; K21.9 Gastro-esophageal reflux disease without esophagitis; I25.5 Ischemic cardiomyopathy; E78.00 Pure hypercholesterolemia, unspecified; I11.0 Hypertensive heart disease with heart failure; Z71.6 Tobacco abuse counseling
CPT/HCPCS: 36415; 71045; 71275; 74177; 76705; 78227; 80048; 80053; 80076; 81003; 83605; 83690; 83735; 84100; 84484; 85007; 85025; 85027; 85379; 88304; 93005; 93010; 96361; 96374; 96375; 96376; A9537; J0690; J1100; J1170; J1200; J1644; J1956; J2001; J2175; J2270; J2405; J2550; J2704; J3010; J7620; Q9967; S0020

== ENCOUNTER 2019-09-21 19:57 | Emergency (ER) | payer MEDICARE ==
[~2019-09-21 19:57] MED LIST changes: -Iopamidol 370 76% 100 ML VIAL ONE; +Iopamidol-370 76% 500 ML 1 ML ONE
[2019-09-21 20:33] LABS: #Basophils 0.1 thou/uL (0.0-0.2); #Eosinphils 0.4 thou/uL (0.0-0.7); #Lymphocytes 3.1 thou/uL (1.20-3.40); %Basophils 0.6 % (0.0-1.0); %Lymphocytes 24.4 % (21.0-51.0); %Monocytes 7.9 % (0.0-10.0); %Neutrophils 64.1 % (42.0-75.0); Hemoglobin 17.6 g/dL (14.0-18.0); Mean Corpuscular HGB CONC 34.6 g/dL (32.0-36.0); Mean Corpuscular Hemoglobin 32.1 pg (27.0-31.0); Mean Corpuscular Volume 92.9 fL (78.0-98.0); Mean Platelet Volume 8.4 fL (7.4-10.4); Platelet Count 248 thou/uL (130-400); RBC Distribution Width 11.9 % (11.5-14.5); Red Blood Cell (RBC) Count 5.49 mill/uL (4.70-6.10); White Blood Cell (WBC) Count 12.5 thou/uL (4.8-10.8)
[2019-09-21 20:56] LABS: ALT (SGPT) 18 U/L (8-55); AST (SGOT) 16 U/L (5-34); Albumin 4.3 g/dL (3.4-4.8); Alkaline Phosphatase 66 U/L (40-110); Anion Gap 16 mmol/L (10-20); BUN (Urea Nitrogen) 11 mg/dL (8.4-25.7); Bilirubin, Total 0.5 mg/dL (0.2-1.2); Calc. Creatinine Clearance 0 mL/min (70-130); Calcium 9.6 mg/dL (7.8-10.44); Carbon Dioxide 25 mmol/L (23-31); Chloride 98 mmol/L (98-107); Estimated GFR-MDRD 90; Globulin 2.9 g/dL (2.4-3.5); Glucose 98 mg/dL (83-110); Lipase 47 U/L (8-78); Potassium 4.5 mmol/L (3.5-5.1); Protein, Total 7.2 g/dL (5.8-8.1); Sodium 134 mmol/L (136-145)
[2019-09-21 21:41] LABS: Bilirubin Negative (Negative); Blood, Urine Negative (Negative); Clarity Clear (Clear); Glucose, Urine (Dipstick) Normal (Negative); Leukocyte Negative Leu/uL (Negative); Nitrite Negative (Negative); Protein, Urine (Dipstick) Negative (Neg-Trace); Urobilinogen Normal mg/dL (Less than 2)
[2019-09-21] MEDS ORDERED: Morphine 4 MG/ML VIAL ONE (21:55)
[2019-09-21] MEDS ORDERED: Ondansetron PF 4 MG/2 ML Vial ONE (21:55)
--- NOTE | 2019-09-21 23:16 | CT ---
CT ABDOMEN WITH CONTRAST CT PELVIS WITH CONTRAST: DATE: 09/21/2019 HISTORY: 84-year-old male with right-sided abdominal pain COMPARISON: 09/06/2019 TECHNIQUE: IV injection of iodinated contrast media: administered. Oral contrast media:Not administered FINDINGS: Appendix not visualized (has there been appendectomy?) Right-sided inguinal hernia again demonstrated with involvement of short loop of fluid-filled ileum. No fat stranding. Fat-containing left inguinal hernia. Sigmoid and descending colonic diverticulosis without diverticulitis. No small bowel dilation or ascites. Heavy atherosclerotic calcification of abdominal aorta and its branches, including iliac arteries, an d high-grade stenoses at origins of celiac axis and SMA. Cholecystectomy clips. No major pathology identified involving kidneys, adrenals, pancreas, liver, or spleen. Enlarged prostate. Diffuse mural thickening of urinary bladder, unchanged. No significant interval change. IMPRESSION: 1. No acute findings. 2. Atherosclerosis of abdominal aorta and branches, including high-grade stenosis at origins of dejah c axis and superior mesenteric artery. 3. Right inguinal hernia containing short loop of ileum. 4. Fat-containing left inguinal hernia.
[2019-09-21] MEDS ORDERED: Ketorolac Tromethamine 30 MG/ML VIAL ONE (23:36)
[2019-09-21] MEDS ORDERED: Mag-Al 1200 mg/1200 mg/30 ML UDCUP ONE (23:36)
[2019-09-21] MEDS ORDERED: Lidocaine Viscous Sol 2% 15 ml UD Cup ONE (23:36)
--- NOTE | 2019-09-25 14:23 | EKG ---
Test Reason : Blood Pressure : / mmHG Vent. Rate : 069 BPM Atrial Rate : 069 BPM P-R Int : 112 ms QRS Dur : 088 ms QT Int : 406 ms P-R-T Axes : -08 -06 092 degrees QTc Int : 435 ms Electronic atrial pacemaker Cannot rule out Inferior infarct , age undetermined Anteroseptal infarct , age undetermined Abnormal ECG Confirmed by OLIVER WYLIE DO ([id number]), acquisition editor CARLOS TOMLIN ([id number]) on 09/25/2019 2:23:25 PM Referred By: MARGO WYLIE Confirmed By:OLIVER WYLIE DO
== END 2019-09-22 00:38 | disposition home or self-care (01) ==
LOC: ERS 19:57
DX: R10.11 Right upper quadrant pain (principal); I25.2 Old myocardial infarction; I10 Essential (primary) hypertension; F17.210 Nicotine dependence, cigarettes, uncomplicated; Z79.899 Other long term (current) drug therapy
CPT/HCPCS: 36415; 74177; 80053; 81003; 83690; 85025; 93005; 96374; 96375; J1885; J2270; J2405; Q9967

== ENCOUNTER 2020-11-30 19:40 | Observation (INO) | payer MEDICARE, OTHER ==
[2020-11-30 20:57] LABS: #Eosinphils 0.2 thou/uL (0.0-0.7); #Lymphocytes 2.3 thou/uL (1.20-3.40); #Monocytes 0.9 thou/uL (0.11-0.59); %Basophils 0.1 % (0.0-1.0); %Eosinophils 2.1 % (0.0-10.0); %Lymphocytes 24.6 % (21.0-51.0); %Monocytes 9.6 % (0.0-10.0); %Neutrophils 63.6 % (42.0-75.0); Hemoglobin 16.7 g/dL (14.0-18.0); Mean Corpuscular HGB CONC 33.6 g/dL (32.0-36.0); Mean Corpuscular Hemoglobin 32.5 pg (27.0-31.0); Mean Corpuscular Volume 96.5 fL (78.0-98.0); Mean Platelet Volume 7.9 fL (7.4-10.4); Platelet Count 227 thou/uL (130-400); RBC Distribution Width 11.7 % (11.5-14.5); Red Blood Cell (RBC) Count 5.16 mill/uL (4.70-6.10); White Blood Cell (WBC) Count 9.4 thou/uL (4.8-10.8)
[2020-11-30 21:21] LABS: ALT (SGPT) 15 U/L (8-55); AST (SGOT) 14 U/L (5-34); Albumin 3.8 g/dL (3.4-4.8); Alkaline Phosphatase 57 U/L (40-110); Anion Gap 13 mmol/L (10-20); BUN (Urea Nitrogen) 16 mg/dL (8.4-25.7); Bilirubin, Total 0.4 mg/dL (0.2-1.2); CK (CPK) 39 U/L (30-200); Calc. Creatinine Clearance 0 mL/min (70-130); Calcium 8.8 mg/dL (7.8-10.44); Carbon Dioxide 28 mmol/L (23-31); Chloride 102 mmol/L (98-107); Globulin 2.3 g/dL (2.4-3.5); Glucose 108 mg/dL (83-110); Potassium 4.5 mmol/L (3.5-5.1); Protein, Total 6.1 g/dL (5.8-8.1); Sodium 138 mmol/L (136-145)
[2020-12-01] MEDS ORDERED: Ondansetron ODT 4 MG TAB SL PRN (00:45)
[2020-12-01] MEDS ORDERED: Ondansetron PF 4 MG/2 ML Vial IVP PRN (00:45)
[2020-12-01] MEDS ORDERED: Acetaminophen 325 MG TAB PO PRN (00:45)
[2020-12-01 01:39] LABS: Troponin I Less than 0.010 ng/mL (< 0.028)
[2020-12-01] MEDS ORDERED: hydrALAZINE 20 MG/ML VIAL SLOW IVP SCH (02:45)
[2020-12-01 04:41] VITALS: BMI 23.1
[2020-12-01 04:44] LABS: #Basophils 0.1 thou/uL (0.0-0.2); #Eosinphils 0.2 thou/uL (0.0-0.7); #Lymphocytes 2.3 thou/uL (1.20-3.40); #Monocytes 0.9 thou/uL (0.11-0.59); #Neutrophils 7.8 thou/uL (1.40-6.50); %Eosinophils 1.9 % (0.0-10.0); %Lymphocytes 20.6 % (21.0-51.0); %Monocytes 7.6 % (0.0-10.0); Hemoglobin 17.5 g/dL (14.0-18.0); Mean Corpuscular HGB CONC 33.1 g/dL (32.0-36.0); Mean Corpuscular Hemoglobin 32.2 pg (27.0-31.0); Mean Corpuscular Volume 97.4 fL (78.0-98.0); Mean Platelet Volume 8.2 fL (7.4-10.4); Platelet Count 221 thou/uL (130-400); RBC Distribution Width 11.7 % (11.5-14.5); Red Blood Cell (RBC) Count 5.43 mill/uL (4.70-6.10); White Blood Cell (WBC) Count 11.4 thou/uL (4.8-10.8)
[2020-12-01] MEDS ORDERED: ALPRAZolam 0.5 MG TAB PO PRN (04:58)
[2020-12-01] MEDS ORDERED: Aspirin 325 MG TAB PO SCH (05:00)
[2020-12-01 05:07] LABS: Anion Gap 11 mmol/L (10-20); BUN (Urea Nitrogen) 12 mg/dL (8.4-25.7); Calc. Creatinine Clearance 73 mL/min (70-130); Calcium 9.3 mg/dL (7.8-10.44); Carbon Dioxide 28 mmol/L (23-31); Chloride 102 mmol/L (98-107); Glucose 112 mg/dL (83-110); Sodium 137 mmol/L (136-145)
[2020-12-01 05:09] LABS: Troponin I Less than 0.010 ng/mL (< 0.028)
[2020-12-01] MEDS ORDERED: Enoxaparin Sodium 40 MG/0.4 ML SYRINGE SC SCH (09:00)
[2020-12-01] MEDS ORDERED: Aspirin Chewable 81 MG TAB PO SCH (09:00)
[2020-12-01] MEDS ORDERED: Clopidogrel Bisulfate 75 MG TAB PO SCH (09:00)
[2020-12-01] MEDS ORDERED: Carvedilol 6.25 MG TAB PO SCH (09:00)
[2020-12-01] MEDS ORDERED: Spironolactone 25 MG TAB PO SCH (09:00)
[2020-12-01] MEDS ORDERED: Lidocaine 2% Viscous Solution 10 ML, Aluminum & Magnesium Hydroxide 30 ML SSW SCH (09:45)
[2020-12-01] MEDS ORDERED: Pantoprazole 40 MG VIAL IVP SCH (09:45)
[2020-12-01 11:47] VITALS: BP 171/77; TEMP 97.4
[2020-12-02] MEDS ORDERED: Aspirin 81 mg Enteric Coated Tablet PO SCH (09:00)
== END 2020-12-01 14:50 | disposition left against medical advice (07) ==
LOC: ERS 19:40 → 2SE 22:39
PROVIDERS: ADMIT Student in an Organized Health Care Education/Training Program; ATTEND Student in an Organized Health Care Education/Training Program
DX: R07.2 Precordial pain (principal); I11.0 Hypertensive heart disease with heart failure; I50.42 Chronic combined systolic (congestive) and diastolic (congestive) heart failure; I25.10 Atherosclerotic heart disease of native coronary artery without angina pectoris; I25.5 Ischemic cardiomyopathy; I47.2 Ventricular tachycardia; K50.90 Crohn's disease, unspecified, without complications; E78.00 Pure hypercholesterolemia, unspecified; Z79.899 Other long term (current) drug therapy; Z95.0 Presence of cardiac pacemaker; Z95.5 Presence of coronary angioplasty implant and graft; Z95.810 Presence of automatic (implantable) cardiac defibrillator; Z88.0 Allergy status to penicillin
CPT/HCPCS: 36415; 71046; 80048; 80053; 82550; 83735; 84484; 85025; 93005; C9113; J0360; Q0162

== ENCOUNTER 2021-05-23 10:51 | Outpatient (CLI) | payer MEDICARE, OTHER | END 2021-05-23 10:52 | disposition home or self-care (01) | LOC: PET 10:51 | PROVIDERS: ATTEND Internal Medicine | DX: R91.1 Solitary pulmonary nodule (principal); C34.32 Malignant neoplasm of lower lobe, left bronchus or lung; C78.2 Secondary malignant neoplasm of pleura; C79.51 Secondary malignant neoplasm of bone; J90 Pleural effusion, not elsewhere classified | CPT/HCPCS: 78815; A9552 ==

== ENCOUNTER 2021-05-29 16:30 | Inpatient (IN) | payer MEDICARE, OTHER ==
[2021-05-29] MEDS ORDERED: Morphine 4 MG/ML VIAL SLOW IVP SCH (21:00)
[2021-05-29] MEDS ORDERED: Metoprolol Tartrate 5 MG/5 ML VIAL IVP SCH (22:13)
[2021-05-29] MEDS ORDERED: Morphine 4 MG/ML VIAL SLOW IVP PRN (23:53)
[2021-05-30] MEDS ORDERED: Acetaminophen 650 MG Suppository PR PRN (00:02)
[2021-05-30] MEDS ORDERED: Ondansetron PF 4 MG/2 ML Vial IVP PRN (00:02)
[2021-05-30] MEDS ORDERED: Ondansetron ODT 4 MG TAB PO PRN (00:02)
[2021-05-30] MEDS ORDERED: Acetaminophen 325 MG TAB PO PRN (00:02)
[2021-05-30 01:05] LABS: #Eosinphils 0.1 thou/uL (0.0-0.7); #Lymphocytes 1.6 thou/uL (1.20-3.40); #Neutrophils 11.2 thou/uL (1.40-6.50); %Basophils 0.2 % (0.0-1.0); %Eosinophils 0.5 % (0.0-10.0); %Monocytes 13.6 % (0.0-10.0); %Neutrophils 74.8 % (42.0-75.0); Hemoglobin 14.4 g/dL (14.0-18.0); Mean Corpuscular HGB CONC 32.5 g/dL (32.0-36.0); Mean Corpuscular Hemoglobin 31.4 pg (27.0-31.0); Mean Corpuscular Volume 96.5 fL (78.0-98.0); Mean Platelet Volume 6.8 fL (7.4-10.4); Platelet Count 404 thou/uL (130-400); RBC Distribution Width 12.1 % (11.5-14.5); Red Blood Cell (RBC) Count 4.58 mill/uL (4.70-6.10)
[2021-05-30 01:14] LABS: ALT (SGPT) 23 U/L (8-55); AST (SGOT) 18 U/L (5-34); Albumin 2.7 g/dL (3.4-4.8); Alkaline Phosphatase 66 U/L (40-110); Anion Gap 13 mmol/L (10-20); BUN (Urea Nitrogen) 14 mg/dL (8.4-25.7); Bilirubin, Total 0.5 mg/dL (0.2-1.2); Calc. Creatinine Clearance 90 mL/min (70-130); Calcium 8.8 mg/dL (7.8-10.44); Carbon Dioxide 28 mmol/L (23-31); Chloride 96 mmol/L (98-107); Globulin 3.2 g/dL (2.4-3.5); Glucose 118 mg/dL (83-110); Magnesium 1.7 mg/dL (1.6-2.6); Potassium 3.6 mmol/L (3.5-5.1); Protein, Total 5.9 g/dL (5.8-8.1); Sodium 133 mmol/L (136-145)
[2021-05-30 01:17] LABS: Troponin I Less than 0.010 ng/mL (< 0.028)
[2021-05-30] MEDS: HYDROcodone/Acetaminophen 5/325 mg Tablet PO PRN ×3 (03:17→20:29)
[2021-05-30] MEDS ORDERED: ALPRAZolam 0.5 MG TAB PO PRN (04:27)
[2021-05-30] MEDS: Morphine 4 MG/ML VIAL SLOW IVP PRN ×3 (05:38→18:35)
[2021-05-30] MEDS: fentaNYL 50 mcg/hour Patch TD SCH (09:30)
[2021-05-30] MEDS: Carvedilol 6.25 MG TAB PO SCH ×2 (11:07→20:25)
[2021-05-30] MEDS: Spironolactone 25 MG TAB PO SCH (11:07)
[2021-05-30] MEDS: Aspirin 81 mg Enteric Coated Tablet PO SCH (11:08)
[2021-05-30] MEDS: Enoxaparin Sodium 40 MG/0.4 ML SYRINGE SC SCH (11:09)
[2021-05-30] MEDS ORDERED: Lidocaine 5% Patch TD SCH ×2 (12:11→13:00)
[2021-05-30] MEDS ORDERED: HYDROmorphone 0.5 MG/0.5 ML SYRINGE SLOW IVP SCH (12:15)
[2021-05-30] MEDS: Ketorolac Tromethamine 30 MG/ML VIAL IVP PRN ×2 (17:06→23:03)
[2021-05-30] MEDS: Transdermal Patch Removal TOP SCH (20:25)
[2021-05-31] MEDS: HYDROcodone/Acetaminophen 5/325 mg Tablet PO PRN (06:12)
[2021-05-31] MEDS: Enoxaparin Sodium 40 MG/0.4 ML SYRINGE SC SCH (08:16)
[2021-05-31] MEDS: Carvedilol 6.25 MG TAB PO SCH ×2 (08:17→20:46)
[2021-05-31] MEDS: Morphine 4 MG/ML VIAL SLOW IVP PRN ×2 (08:18→20:43)
[2021-05-31] MEDS: Aspirin 81 mg Enteric Coated Tablet PO SCH (08:18)
[2021-05-31] MEDS: Spironolactone 25 MG TAB PO SCH (08:18)
[2021-05-31] MEDS: Lidocaine 5% Patch TD SCH (08:19)
[2021-05-31] MEDS ORDERED: Gabapentin 100 MG CAP PO SCH ×2 (10:08→10:45)
[2021-05-31] MEDS ORDERED: HYDROmorphone 0.5 MG/0.5 ML SYRINGE SLOW IVP SCH (10:15)
[2021-05-31 10:40] LABS: #Eosinphils 0.1 thou/uL (0.0-0.7); #Lymphocytes 1.2 thou/uL (1.20-3.40); #Neutrophils 9.8 thou/uL (1.40-6.50); %Basophils 0.2 % (0.0-1.0); %Eosinophils 0.7 % (0.0-10.0); %Lymphocytes 9.5 % (21.0-51.0); %Monocytes 8.4 % (0.0-10.0); %Neutrophils 81.3 % (42.0-75.0); Mean Corpuscular HGB CONC 32.5 g/dL (32.0-36.0); Mean Corpuscular Hemoglobin 31.6 pg (27.0-31.0); Mean Platelet Volume 6.9 fL (7.4-10.4); Platelet Count 408 thou/uL (130-400); RBC Distribution Width 12.2 % (11.5-14.5); Red Blood Cell (RBC) Count 4.45 mill/uL (4.70-6.10); White Blood Cell (WBC) Count 12.1 thou/uL (4.8-10.8)
[2021-05-31 11:02] LABS: Anion Gap 13 mmol/L (10-20); BUN (Urea Nitrogen) 18 mg/dL (8.4-25.7); Calc. Creatinine Clearance 82 mL/min (70-130); Carbon Dioxide 30 mmol/L (23-31); Chloride 93 mmol/L (98-107); Glucose 173 mg/dL (83-110); Potassium 4.1 mmol/L (3.5-5.1); Sodium 132 mmol/L (136-145)
[2021-05-31] MEDS ORDERED: Bisacodyl 10 MG SUPP PR PRN (11:07)
[2021-05-31] MEDS ORDERED: Metamucil PACK PO SCH (12:30)
[2021-05-31] MEDS ORDERED: Polyethylene Glycol 3350 17 GM Packet PO SCH (12:30)
[2021-05-31] MEDS ORDERED: Docusate 100 MG CAP PO SCH (12:30)
[2021-05-31] MEDS: traMADol HCl 50 MG TAB PO SCH ×3 (14:17→23:48)
[2021-05-31] MEDS: Gabapentin 100 MG CAP PO SCH ×2 (17:00→20:46)
[2021-05-31] MEDS: Docusate 100 MG CAP PO SCH (20:45)
[2021-05-31] MEDS: Transdermal Patch Removal TOP SCH (20:49)
[2021-06-01] MEDS: traMADol HCl 50 MG TAB PO SCH ×4 (05:06→23:40)
[2021-06-01] MEDS: Carvedilol 6.25 MG TAB PO SCH ×2 (08:44→20:55)
[2021-06-01] MEDS: Aspirin 81 mg Enteric Coated Tablet PO SCH (08:44)
[2021-06-01] MEDS: Polyethylene Glycol 3350 17 GM Packet PO SCH (08:45)
[2021-06-01] MEDS: Gabapentin 100 MG CAP PO SCH ×3 (08:45→20:56)
[2021-06-01] MEDS: Docusate 100 MG CAP PO SCH ×2 (08:45→20:56)
[2021-06-01] MEDS: Spironolactone 25 MG TAB PO SCH (08:45)
[2021-06-01] MEDS: Enoxaparin Sodium 40 MG/0.4 ML SYRINGE SC SCH (08:46)
[2021-06-01] MEDS: Metamucil PACK PO SCH (08:46)
[2021-06-01] MEDS: Ketorolac Tromethamine 30 MG/ML VIAL IVP PRN ×3 (08:47→20:57)
[2021-06-01] MEDS: Lidocaine 5% Patch TD SCH (09:01)
[2021-06-01] MEDS ORDERED: HYDROcodone/Acetaminophen 10/325 mg Tablet PO PRN (12:08)
[2021-06-01 17:23] LABS: SARS-CoV-2 NAA Rapid Test Not Detected (NotDetected)
[2021-06-01] MEDS: Transdermal Patch Removal TOP SCH (22:14)
[2021-06-02] MEDS: Morphine 4 MG/ML VIAL SLOW IVP PRN ×2 (04:13→22:55)
[2021-06-02] MEDS: traMADol HCl 50 MG TAB PO SCH ×3 (05:21→17:07)
[2021-06-02] MEDS: fentaNYL 50 mcg/hour Patch TD SCH (08:37)
[2021-06-02] MEDS: Lidocaine 5% Patch TD SCH (08:38)
[2021-06-02] MEDS: Carvedilol 6.25 MG TAB PO SCH ×2 (09:19→20:49)
[2021-06-02] MEDS: Aspirin 81 mg Enteric Coated Tablet PO SCH (09:19)
[2021-06-02] MEDS: Enoxaparin Sodium 40 MG/0.4 ML SYRINGE SC SCH (09:20)
[2021-06-02] MEDS: Gabapentin 100 MG CAP PO SCH ×3 (09:20→20:49)
[2021-06-02] MEDS: Docusate 100 MG CAP PO SCH ×2 (09:20→20:49)
[2021-06-02] MEDS: Polyethylene Glycol 3350 17 GM Packet PO SCH (09:20)
[2021-06-02] MEDS: Metamucil PACK PO SCH (09:20)
[2021-06-02] MEDS: Spironolactone 25 MG TAB PO SCH (09:21)
[2021-06-02] MEDS: Ketorolac Tromethamine 30 MG/ML VIAL IVP PRN ×2 (11:47→20:48)
[2021-06-02] MEDS ORDERED: SUGAMMADEX SODIUM 200 MG/2 ML VIAL ONE (11:56)
[2021-06-02] MEDS ORDERED: Fentanyl 100 MCG/2 ML VIAL ONE ×2 (11:56→15:48)
[2021-06-02 13:48] VITALS: BMI 21.6
[2021-06-02] MEDS ORDERED: Rocuronium Bromide 10 MG/ML (10ML VIAL) ONE (13:56)
[2021-06-02] MEDS ORDERED: Esmolol 100 MG/10 ML VIAL ONE (13:56)
[2021-06-02] MEDS ORDERED: Phenylephrine 10 MG/ML VIAL ONE (13:56)
[2021-06-02] MEDS ORDERED: Dexamethasone 20 MG/5 ML VIAL ONE (13:56)
[2021-06-02] MEDS ORDERED: Ondansetron PF 4 MG/2 ML Vial ONE (13:56)
[2021-06-02] MEDS ORDERED: Lidocaine 1% PF 5 ML VIAL ONE (13:56)
[2021-06-02] MEDS: Transdermal Patch Removal TOP SCH (21:02)
[2021-06-03] MEDS: traMADol HCl 50 MG TAB PO SCH ×2 (00:41→05:13)
[2021-06-03] MEDS: Spironolactone 25 MG TAB PO SCH (08:37)
[2021-06-03] MEDS: Carvedilol 6.25 MG TAB PO SCH ×2 (08:37→20:06)
[2021-06-03] MEDS: Enoxaparin Sodium 40 MG/0.4 ML SYRINGE SC SCH (08:37)
[2021-06-03] MEDS: Docusate 100 MG CAP PO SCH ×2 (08:37→20:07)
[2021-06-03] MEDS: Gabapentin 100 MG CAP PO SCH ×3 (08:38→20:07)
[2021-06-03] MEDS: Aspirin 81 mg Enteric Coated Tablet PO SCH (08:38)
[2021-06-03] MEDS: Polyethylene Glycol 3350 17 GM Packet PO SCH (08:39)
[2021-06-03] MEDS: Metamucil PACK PO SCH (08:39)
[2021-06-03] MEDS: Lidocaine 5% Patch TD SCH (09:15)
[2021-06-03] MEDS ORDERED: Morphine 4 MG/ML VIAL SLOW IVP PRN (10:01)
[2021-06-03] MEDS: HYDROcodone/Acetaminophen 5/325 mg Tablet PO PRN ×2 (11:42→20:07)
[2021-06-03] MEDS: ALPRAZolam 0.5 MG TAB PO SCH (20:07)
[2021-06-03] MEDS: Transdermal Patch Removal TOP SCH (20:08)
[2021-06-04 05:24] LABS: Cardiac Risk 3.5 (Less than 4.5)
[2021-06-04] MEDS: HYDROcodone/Acetaminophen 5/325 mg Tablet PO PRN ×2 (05:46→08:43)
[2021-06-04] MEDS: Spironolactone 25 MG TAB PO SCH (08:37)
[2021-06-04] MEDS: Aspirin 81 mg Enteric Coated Tablet PO SCH (08:37)
[2021-06-04] MEDS: Gabapentin 100 MG CAP PO SCH ×2 (08:38→14:47)
[2021-06-04] MEDS: ALPRAZolam 0.5 MG TAB PO SCH (08:38)
[2021-06-04] MEDS: Carvedilol 6.25 MG TAB PO SCH (08:38)
[2021-06-04] MEDS: Lidocaine 5% Patch TD SCH (08:39)
[2021-06-04] MEDS: Enoxaparin Sodium 40 MG/0.4 ML SYRINGE SC SCH (08:39)
[2021-06-04] MEDS: Docusate 100 MG CAP PO SCH (08:39)
[2021-06-04] MEDS: Metamucil PACK PO SCH (08:40)
[2021-06-04] MEDS: Polyethylene Glycol 3350 17 GM Packet PO SCH (08:40)
[2021-06-04] MEDS ORDERED: Clopidogrel Bisulfate 75 MG TAB PO SCH (09:00)
[2021-06-04 10:26] VITALS: TEMP 98.1
[2021-06-04] MEDS ORDERED: HYDROcodone/Acetaminophen 5/325 mg Tablet PO PRN (11:52)
[2021-06-04 12:18] VITALS: BP 125/55
[2021-06-04] MEDS ORDERED: oxyCODONE ER 10 MG TAB PO SCH (21:00)
== END 2021-06-04 17:25 | disposition home or self-care (01) | DRG 181 ==
LOC: 2NO 17:02
PROVIDERS: ADMIT Internal Medicine; ATTEND Internal Medicine
PROC: 07D78ZX Extraction of Thorax Lymphatic, Via Natural or Artificial Opening Endoscopic, Diagnostic (ICD-10-PCS; principal; 2021-06-02)
PROC: 0B9J8ZX Drainage of Left Lower Lung Lobe, Via Natural or Artificial Opening Endoscopic, Diagnostic (ICD-10-PCS; 2021-06-02)
DX: C34.02 Malignant neoplasm of left main bronchus (principal); C79.51 Secondary malignant neoplasm of bone; I50.42 Chronic combined systolic (congestive) and diastolic (congestive) heart failure; J91.0 Malignant pleural effusion; K50.90 Crohn's disease, unspecified, without complications; I47.2 Ventricular tachycardia; Z20.822 Contact with and (suspected) exposure to COVID-19; I25.10 Atherosclerotic heart disease of native coronary artery without angina pectoris; G89.3 Neoplasm related pain (acute) (chronic); E78.5 Hyperlipidemia, unspecified; E78.00 Pure hypercholesterolemia, unspecified; F32.A Depression, unspecified; F41.9 Anxiety disorder, unspecified; K21.9 Gastro-esophageal reflux disease without esophagitis; I11.0 Hypertensive heart disease with heart failure; I25.5 Ischemic cardiomyopathy; I08.3 Combined rheumatic disorders of mitral, aortic and tricuspid valves; D75.839 Thrombocytosis, unspecified; Z95.810 Presence of automatic (implantable) cardiac defibrillator; Z28.21 Immunization not carried out because of patient refusal; Z87.891 Personal history of nicotine dependence; Z98.42 Cataract extraction status, left eye; Z88.0 Allergy status to penicillin; Z79.899 Other long term (current) drug therapy; Z79.82 Long term (current) use of aspirin; Z79.02 Long term (current) use of antithrombotics/antiplatelets; Z95.5 Presence of coronary angioplasty implant and graft; Z98.41 Cataract extraction status, right eye; I25.2 Old myocardial infarction; Z90.49 Acquired absence of other specified parts of digestive tract
CPT/HCPCS: 32555; 36415; 71045; 71260; 71275; 80048; 80053; 80061; 81001; 82150; 82378; 82945; 83615; 83735; 83880; 83986; 84157; 84484; 85025; 85610; 85730; 87070; 87205; 88112; 88172; 88173; 88305; 88341; 88342; 89051; 93005; 93010; 93306; 96374; 96375; 96376; G0378; J1100; J1170; J1650; J1885; J2270; J2370; J2405; J3010; J7030; U0002

== ENCOUNTER 2021-06-22 09:33 | Outpatient (CLI) | payer MEDICARE, OTHER | END 2021-06-22 09:34 | disposition home or self-care (01) | LOC: CT 09:33 | PROVIDERS: ATTEND Internal Medicine Hematology & Oncology | DX: C34.32 Malignant neoplasm of lower lobe, left bronchus or lung (principal); C79.51 Secondary malignant neoplasm of bone | CPT/HCPCS: 70470 ==

== ENCOUNTER 2021-10-16 14:09 | Inpatient (IN) | payer MEDICARE, OTHER ==
[2021-10-16] MEDS ORDERED: Acetaminophen 325 MG TAB PO PRN (18:38)
[2021-10-16] MEDS ORDERED: Ondansetron PF 4 MG/2 ML Vial IVP PRN (18:39)
[2021-10-16] MEDS ORDERED: Ondansetron ODT 4 MG TAB PO PRN (18:39)
[2021-10-16] MEDS ORDERED: Sodium Chloride 0.9% 1,000 ML IV SCH (18:45)
[2021-10-16] MEDS ORDERED: Nitroglycerin 0.4 MG TAB (25 Tab Bottle) SL PRN (19:32)
[2021-10-16] MEDS ORDERED: Pharmacy to Dose : CEFEPIME IVPB PRN (19:41)
[2021-10-16] MEDS ORDERED: Aspirin Chewable 81 MG TAB PO SCH (19:45)
[2021-10-16 20:38] LABS: Troponin I 0.031 ng/mL (< 0.028)
[2021-10-16] MEDS: Sodium Chloride 0.9% 1,000 ML IV SCH (21:17)
[2021-10-16] MEDS: Azithromycin 500 MG in Sodium Chloride 0.9% 250 ML 250 ML IVPB SCH (21:18)
[2021-10-16] MEDS: Morphine 4 MG/ML VIAL SLOW IVP PRN (21:44)
[2021-10-16] MEDS: Pantoprazole 40 MG VIAL IVP SCH (21:44)
[2021-10-16] MEDS ORDERED: Cefepime 2 GM in Sodium Chloride 0.9% 100 ML IVPB SCH (22:00)
[2021-10-16 23:13] LABS: Hemoglobin 12.4 g/dL (14.0-18.0)
[2021-10-16 23:50] LABS: Anion Gap 12 mmol/L (10-20); BUN (Urea Nitrogen) 22 mg/dL (8.4-25.7); Calc. Creatinine Clearance 82 mL/min (70-130); Calcium 7.9 mg/dL (7.8-10.44); Carbon Dioxide 27 mmol/L (23-31); Chloride 95 mmol/L (98-107); Glucose 101 mg/dL (83-110); Potassium 4.5 mmol/L (3.5-5.1); Sodium 129 mmol/L (136-145)
[2021-10-17] MEDS ORDERED: metroNIDAZOLE 500 MG in Premix Bag 1 BAG IVPB SCH (00:30)
[2021-10-17] MEDS: metroNIDAZOLE 500 MG in Premix Bag 1 BAG IVPB SCH ×3 (01:00→16:17)
[2021-10-17] MEDS ORDERED: Cefepime 2 GM in Sodium Chloride 0.9% 100 ML IVPB SCH (01:00)
[2021-10-17 01:29] LABS: Legionella Urinary Ag Negative (Negative); Strep pneumo Urine Ag NEGATIVE (NEGATIVE)
[2021-10-17] MEDS: Morphine 4 MG/ML VIAL SLOW IVP PRN ×4 (02:46→19:22)
[2021-10-17] MEDS ORDERED: ALPRAZolam 0.5 MG TAB PO PRN (04:13)
[2021-10-17 04:49] LABS: Hemoglobin A1c 4.9 % (4.0-6.0)
[2021-10-17 05:03] LABS: ALT (SGPT) 18 U/L (8-55); AST (SGOT) 16 U/L (5-34); Albumin 2.6 g/dL (3.4-4.8); Alkaline Phosphatase 43 U/L (40-110); Bilirubin, Direct 0.3 mg/dL (0.1-0.3); Bilirubin, Total 0.5 mg/dL (0.2-1.2); Protein, Total 4.9 g/dL (5.8-8.1)
[2021-10-17 05:04] LABS: Anion Gap 13 mmol/L (10-20); BUN (Urea Nitrogen) 19 mg/dL (8.4-25.7); Calc. Creatinine Clearance 85 mL/min (70-130); Calcium 8.3 mg/dL (7.8-10.44); Carbon Dioxide 22 mmol/L (23-31); Cardiac Risk 2.6 (Less than 4.5); Chloride 99 mmol/L (98-107); Cholesterol 105 mg/dl (< 200 Desired); Glucose 99 mg/dL (83-110); HDL Cholesterol 40 mg/dL (>60 Neg Risk); LDL Cholesterol, Calculated 47 mg/dL; Magnesium 1.5 mg/dL (1.6-2.6); Potassium 4.3 mmol/L (3.5-5.1); Sodium 130 mmol/L (136-145); Triglycerides 90 mg/dL (Less than 150)
[2021-10-17 05:16] LABS: #Lymphocytes 0.7 thou/uL (1.20-3.40); #Monocytes 0.1 thou/uL (0.11-0.59); #Neutrophils 0.8 thou/uL (1.40-6.50); %Basophils 0.7 % (0.0-1.0); %Eosinophils 3.1 % (0.0-10.0); %Monocytes 3.2 % (0.0-10.0); Hemoglobin 13.1 g/dL (14.0-18.0); Mean Corpuscular Hemoglobin 33.3 pg (27.0-31.0); Mean Platelet Volume 7.6 fL (7.4-10.4); Platelet Count 157 thou/uL (130-400); Platelet Morphology Comment Appears Adequate; RBC Distribution Width 16.6 % (11.5-14.5); Red Blood Cell (RBC) Count 3.93 mill/uL (4.70-6.10); White Blood Cell (WBC) Count 1.5 thou/uL (4.8-10.8)
[2021-10-17] MEDS: Cefepime 2 GM in Sodium Chloride 0.9% 100 ML IVPB SCH ×3 (06:23→22:33)
[2021-10-17] MEDS: Mirtazapine 15 MG TAB PO SCH (08:28)
[2021-10-17] MEDS: Pantoprazole 40 MG VIAL IVP SCH ×2 (08:28→21:10)
[2021-10-17] MEDS: Folic Acid 1 MG TAB PO SCH (08:28)
[2021-10-17] MEDS ORDERED: Enoxaparin Sodium 40 MG/0.4 ML SYRINGE SC SCH (09:00)
[2021-10-17] MEDS ORDERED: Clopidogrel Bisulfate 75 MG TAB PO SCH (09:00)
[2021-10-17] MEDS ORDERED: Aspirin Chewable 81 MG TAB PO SCH (09:00)
[2021-10-17 12:21] LABS: SARS-CoV-2 PCR by NAA Not Detected (NotDetected)
[2021-10-17] MEDS ORDERED: Ketorolac Tromethamine 30 MG/ML VIAL ONE (12:59)
[2021-10-17] MEDS ORDERED: Oxybutynin 5 MG TAB ONE (13:01)
[2021-10-17] MEDS ORDERED: predniSONE 20 MG TAB PO SCH (14:45)
[2021-10-17 14:52] VITALS: BMI 17.3
[2021-10-17] MEDS: Azithromycin 500 MG in Sodium Chloride 0.9% 250 ML 250 ML IVPB SCH (21:11)
[2021-10-17] MEDS: Sodium Chloride 0.9% 1,000 ML IV SCH (22:26)
[2021-10-18] MEDS ORDERED: Morphine IR 10 MG/5 ML UDCUP PO SCH (01:45)
[2021-10-18] MEDS: metroNIDAZOLE 500 MG in Premix Bag 1 BAG IVPB SCH (01:58)
[2021-10-18] MEDS ORDERED: metroNIDAZOLE 500 MG TAB PO SCH ×2 (02:00→09:00)
[2021-10-18] MEDS ORDERED: Morphine 4 MG/ML VIAL SLOW IVP SCH (02:00)
[2021-10-18 05:00] LABS: #Lymphocytes 0.8 thou/uL (1.20-3.40); #Monocytes 0.1 thou/uL (0.11-0.59); #Neutrophils 1.5 thou/uL (1.40-6.50); %Basophils 0.1 % (0.0-1.0); %Eosinophils 0.5 % (0.0-10.0); %Lymphocytes 32.8 % (21.0-51.0); %Monocytes 2.4 % (0.0-10.0); %Neutrophils 64.3 % (42.0-75.0); Hemoglobin 12.5 g/dL (14.0-18.0); Mean Corpuscular HGB CONC 34.6 g/dL (32.0-36.0); Mean Corpuscular Hemoglobin 34.3 pg (27.0-31.0); Mean Corpuscular Volume 99.1 fL (78.0-98.0); Mean Platelet Volume 7.8 fL (7.4-10.4); Platelet Count 132 thou/uL (130-400); RBC Distribution Width 16.1 % (11.5-14.5); Red Blood Cell (RBC) Count 3.66 mill/uL (4.70-6.10); White Blood Cell (WBC) Count 2.3 thou/uL (4.8-10.8)
[2021-10-18] MEDS: Cefepime 2 GM in Sodium Chloride 0.9% 100 ML IVPB SCH (05:18)
[2021-10-18 05:19] LABS: Anion Gap 12 mmol/L (10-20); BUN (Urea Nitrogen) 19 mg/dL (8.4-25.7); Calc. Creatinine Clearance 73 mL/min (70-130); Calcium 7.9 mg/dL (7.8-10.44); Carbon Dioxide 24 mmol/L (23-31); Chloride 99 mmol/L (98-107); Glucose 85 mg/dL (83-110); Magnesium 1.5 mg/dL (1.6-2.6); Potassium 4.3 mmol/L (3.5-5.1); Sodium 131 mmol/L (136-145)
[2021-10-18 07:56] VITALS: BP 165/100; TEMP 97.7
[2021-10-18] MEDS ORDERED: predniSONE 50 MG TAB PO SCH (08:00)
[2021-10-18] MEDS: Pantoprazole 40 MG VIAL IVP SCH (08:11)
[2021-10-18] MEDS: Mirtazapine 15 MG TAB PO SCH (08:12)
[2021-10-18] MEDS: Folic Acid 1 MG TAB PO SCH (08:14)
[2021-10-18] MEDS ORDERED: Morphine IR Tab 15 MG TAB PO SCH (09:00)
== END 2021-10-18 11:00 | disposition hospice, home (50) | DRG 394 ==
LOC: 2NO 18:01 → OBSVTOIN 19:42
PROVIDERS: ADMIT Family Medicine; ATTEND Family Medicine
DX: K55.9 Vascular disorder of intestine, unspecified (principal); Z66 Do not resuscitate; Z20.822 Contact with and (suspected) exposure to COVID-19; Z51.5 Encounter for palliative care; K50.90 Crohn's disease, unspecified, without complications; C79.51 Secondary malignant neoplasm of bone; E87.1 Hypo-osmolality and hyponatremia; C34.32 Malignant neoplasm of lower lobe, left bronchus or lung; M84.58XA Pathological fracture in neoplastic disease, other specified site, initial encounter for fracture; E87.2 Acidosis; I50.22 Chronic systolic (congestive) heart failure; K52.1 Toxic gastroenteritis and colitis; I25.10 Atherosclerotic heart disease of native coronary artery without angina pectoris; E78.5 Hyperlipidemia, unspecified; E87.5 Hyperkalemia; E86.0 Dehydration; G89.4 Chronic pain syndrome; K59.00 Constipation, unspecified; I11.0 Hypertensive heart disease with heart failure; I25.5 Ischemic cardiomyopathy; E78.00 Pure hypercholesterolemia, unspecified; T45.1X5A Adverse effect of antineoplastic and immunosuppressive drugs, initial encounter; Z28.21 Immunization not carried out because of patient refusal; Z95.810 Presence of automatic (implantable) cardiac defibrillator; Z88.0 Allergy status to penicillin; Z79.899 Other long term (current) drug therapy; Z79.82 Long term (current) use of aspirin; Z79.02 Long term (current) use of antithrombotics/antiplatelets; Z95.5 Presence of coronary angioplasty implant and graft; Z90.49 Acquired absence of other specified parts of digestive tract; Z90.89 Acquired absence of other organs; Z85.828 Personal history of other malignant neoplasm of skin; I25.2 Old myocardial infarction
CPT/HCPCS: 36415; 71275; 74177; 80048; 80053; 80061; 80076; 81003; 81015; 82274; 82533; 82550; 83036; 83605; 83630; 83690; 83735; 83880; 84443; 84484; 85025; 87040; 87045; 87046; 87081; 87086; 87324; 87427; 87449; 87899; 93005; 93010; 96374; 96375; C9113; J0456; J0692; J1885; J2270; J3370; J3490; J7050; J7512; Q9967; U0003; U0005